=== PATIENT | female | born 1985 | race Caucasian/White ===

== ENCOUNTER 2016-04-29 16:35 | Emergency (ER) | payer OTHER ==
[2016-04-29] MEDS ORDERED: diphenhydrAMINE 50 MG/ML 1 ML VIAL IVP STA (17:07)
[2016-04-29] MEDS ORDERED: SODIUM CHLORIDE 0.9% 1,000 ML IV STA (17:07)
[2016-04-29] MEDS ORDERED: DEXAMETHASONE SOD PHOSPHATE 4 MG/ML 1 ML VIAL IV STA (17:07)
[2016-04-29] MEDS ORDERED: METOCLOPRAMIDE 5 MG/ML 2 ML VIAL IVP STA (17:07)
[2016-04-29] MEDS ORDERED: ACETAMINOPHEN TAB 325 MG TAB PO STA (17:08)
[2016-04-29 17:46] LABS: CH 29.6; CHCM 35.3; HCT 36.8 % (34.0-46.0); HDW 3.07; HGB 12.8 gm/dL (11.4-16.0); MCH 29.2 pg (25.0-35.0); MCHC 34.7 g/dL (31.0-37.0); MCV 84.4 fL (80.0-100.0); Mean Platelet Volume 7.2; RBC 4.37 m/uL (3.80-5.40); RDW 13.1 % (11.5-15.5); WBC 11.5 k/uL (3.8-10.6)
--- NOTE | 2016-04-29 17:57 | ED ---
General Adult HPI - General Chief complaint: Headache Stated complaint: Headache Time Seen by Provider: 04/29/16 16:50 Source: patient Mode of arrival: ambulatory Limitations: no limitations - History of Present Illness Initial comments: The patient is a 30-year-old female who presents to the ED with a chief complaint of headache. The patient states that the pain is located predominantly on the left side of her head. The patient states that it is an achy pain. She states that it feels like a large amount of pressure within her head. She states that the pressure starts behind her left eye and courses to the left occipital region. The patient denies any visual changes. She states that she has photophobia of the left eye only. Patient denies any nausea but states she had had a decreased appetite overall. Patient states that she has never had a headache like this in the past. The only thing that she can think of is when she had a spinal headache following an epidural. Patient denies that she gets regular migraine headaches. Patient denies any fevers or chills. She denies any recent head trauma. Patient states that she took Sudafed at home without any relief of symptoms. Patient denies any congestion. Denies any sore throat. Denies antibiotics. - Related Data Home Medications Medication Instructions Recorded Confirmed Bc Pain Reliever 1 tab PO DAILY PRN 04/29/16 04/29/16 Previous Rx's Medication Instructions Recorded Butalb/Acetaminophen/Caffeine 1 - 2 each PO Q4H PRN #18 tab 04/29/16 [Fioricet 50-325-40] Allergies Allergy/AdvReac Type Severity Reaction Status Date / Time No Known Allergies Allergy Verified 04/29/16 17:05 Review of Systems ROS Statement: Those systems with pertinent positive or pertinent negative responses have been documented in the HPI. ROS Other: All systems not noted in ROS Statement are negative. Constitutional: Denies: fever, chills, weakness Eyes: Reports: other (photophobia of left eye). Denies: eye pain, eye discharge , vision change ENT: Denies: ear pain, throat pain, dental pain, hearing loss Respiratory: Denies: cough, dyspnea, wheezes, hemoptysis Cardiovascular: Denies: chest pain Endocrine: Denies: fatigue Gastrointestinal: Denies: abdominal pain, nausea, vomiting, diarrhea, constipation Genitourinary: Denies: urgency, dysuria, frequency, hematuria Musculoskeletal: Denies: back pain Skin: Denies: rash, lesions, change in color Neurological: Reports: headache. Denies: weakness, numbness, paresthesias, confusion Psychiatric: Denies: anxiety, depression Past Medical History Past Medical History: No Reported History History of Any Multi-Drug Resistant Organisms: None Reported Additional Past Surgical History / Comment(s): COLONOSCOPY Past Anesthesia/Blood Transfusion Reactions: No Reported Reaction Past Psychological History: No Psychological Hx Reported Smoking Status: Former smoker Past Alcohol Use History: None Reported Past Drug Use History: None Reported General Exam Limitations: no limitations General appearance: alert, in no apparent distress Head exam: Present: atraumatic, normocephalic Eye exam: Present: normal appearance, PERRL, EOMI. Absent: scleral icterus, conjunctival injection Pupils: Present: normal accommodation, other (pupils are 4mm, equal and reactive bilaterally) ENT exam: Present: normal exam, normal oropharynx Neck exam: Present: normal inspection Respiratory exam: Present: normal lung sounds bilaterally. Absent: respiratory distress, wheezes, rales, rhonchi, stridor, chest wall tenderness Cardiovascular Exam: Present: regular rate, normal rhythm GI/Abdominal exam: Present: soft. Absent: distended, tenderness, guarding, rebound Extremities exam: Present: normal inspection, full ROM. Absent: tenderness, normal capillary refill Back exam: Present: normal inspection, full ROM Neurological exam: Present: alert, oriented X3, CN II-XII intact Psychiatric exam: Present: normal affect Skin exam: Present: warm, dry, intact Course Vital Signs 04/29/16 16:36 Temperature 97.6 F Pulse Rate 98 Respiratory 18 Rate Blood Pressure 160/101 O2 Sat by Pulse 97 Oximetry Medical Decision Making - Medical Decision Making Patient is a 30-year-old female who presents to the ED with a chief complaint of headache. Headache is located in the left side of the head. Patient rates it as a 6 out of 10 in severity. Patient states that she's never had a headache like this in the past. She describes it as an achy pressure. Patient denies any fevers or chills. Denies any nausea or vomiting. Denies any visual changes. No neurologic deficits on examination. Provide patient with Decadron , Reglan, Benadryl, IV fluids. Provide patient with Tylenol as well. Check CT head given that this is a new headache the patient has never experienced in the past. Check urine as well. 7:17 PM The patient states that her headache has resolved with the medication provided to her today. She states that she is feeling wonderful. Counseled patient that she is likely suffering from a cluster headache. Counseled her to rest while at home. Will discharge home with prescription for Fioricet to use PRN. I have counseled the patient on how to take this medication appropriately. I have encouraged the patient to return to the ED should her symptoms return or worsen. I have answered all of her questions to her satisfaction. Counseled the patient to follow up with her PCP for further management of her headaches. - Lab Data Result diagrams: 04/29/16 17:35 04/29/16 17:35 Lab Results 04/29/16 04/29/16 04/29/16 Range/Units 17:35 17:35 17:35 WBC 11.5 H (3.8-10.6) k/uL RBC 4.37 (3.80-5.40) m/uL Hgb 12.8 (11.4-16.0) gm/dL Hct 36.8 (34.0-46.0) % MCV 84.4 (80.0-100.0) fL MCH 29.2 (25.0-35.0) pg MCHC 34.7 (31.0-37.0) g/dL RDW 13.1 (11.5-15.5) % Plt Count 300 (150-450) k/uL Sodium 142 (137-145) mmol/L Potassium 3.7 (3.5-5.1) mmol/L Chloride 103 (98-107) mmol/L Carbon Dioxide 28 (22-30) mmol/L Anion Gap 11 mmol/L BUN 9 (7-17) mg/dL Creatinine 0.73 (0.52-1.04) mg/dL Est GFR (MDRD) Af Amer >60 (>60 ml/min/1.73 sqM) Est GFR (MDRD) Non-Af >60 (>60 ml/min/1.73 sqM) Glucose 115 H (74-99) mg/dL Calcium 9.2 (8.4-10.2) mg/dL Magnesium 2.0 (1.6-2.3) mg/dL Urine Color Yellow Urine Appearance Clear (Clear) Urine pH 7.0 (5.0-8.0) Ur Specific [place] 1.020 (1.001-1.035) Urine Protein Negative (Negative) Urine Glucose (UA) Negative (Negative) Urine Ketones Negative (Negative) Urine Blood Moderate H (Negative) Urine Nitrate Negative (Negative) Urine Bilirubin Negative (Negative) Urine Urobilinogen <2.0 (<2.0) mg/dL Ur Leukocyte Esterase Trace H (Negative) Urine RBC 2 (0-5) /hpf Urine WBC 2 (0-5) /hpf Ur Squamous Epith Cells <1 (0-4) /hpf Urine Bacteria Rare H (None) /hpf Urine HCG, Qual (Not Detectd) 04/29/16 Range/Units 17:35 WBC (3.8-10.6) k/uL RBC (3.80-5.40) m/uL Hgb (11.4-16.0) gm/dL Hct (34.0-46.0) % MCV (80.0-100.0) fL MCH (25.0-35.0) pg MCHC (31.0-37.0) g/dL RDW (11.5-15.5) % Plt Count (150-450) k/uL Sodium (137-145) mmol/L Potassium (3.5-5.1) mmol/L Chloride (98-107) mmol/L Carbon Dioxide (22-30) mmol/L Anion Gap mmol/L BUN (7-17) mg/dL Creatinine (0.52-1.04) mg/dL Est GFR (MDRD) Af Amer (>60 ml/min/1.73 sqM) Est GFR (MDRD) Non-Af (>60 ml/min/1.73 sqM) Glucose (74-99) mg/dL Calcium (8.4-10.2) mg/dL Magnesium (1.6-2.3) mg/dL Urine Color Urine Appearance (Clear) Urine pH (5.0-8.0) Ur Specific [place] (1.001-1.035) Urine Protein (Negative) Urine Glucose (UA) (Negative) Urine Ketones (Negative) Urine Blood (Negative) Urine Nitrate (Negative) Urine Bilirubin (Negative) Urine Urobilinogen (<2.0) mg/dL Ur Leukocyte Esterase (Negative) Urine RBC (0-5) /hpf Urine WBC (0-5) /hpf Ur Squamous Epith Cells (0-4) /hpf Urine Bacteria (None) /hpf Urine HCG, Qual Not Detected (Not Detectd) Disposition Clinical Impression: Headache Disposition: HOME SELF-CARE Condition: Good Instructions: Acute Headache (ED) Additional Instructions: Please return to the ED should you have a worsening headache at home, particularly if associated with changes in your vision Prescriptions: Butalb/Acetaminophen/Caffeine [Fioricet 50-325-40] 1 - 2 each PO Q4H PRN #18 tab PRN Reason: Headache Referrals: Rony Lyons MD [Primary Care Provider] - 1-2 days Time of Disposition: 19:14
[2016-04-29 18:01] LABS: Appearance,Urine Clear (Clear); Bacteria,Urine Rare /hpf; Bilirubin,Urine Negative (Negative); Glucose,Urine (UA) Negative (Negative); Ketones,Urine Negative (Negative); Leukocyte Esterase,Urine Trace (Negative); Nitrite,Urine Negative (Negative); Particle Count 3733; Protein,Urine Negative (Negative); RBC,Urine 2 /hpf (0-5); Squamous Epithelial Cell,Urine <1 /hpf (0-4); UA Billing (MACRO vs. MICRO) MICRO; Urobilinogen,Urine <2.0 mg/dL (<2.0); WBC,Urine 2 /hpf (0-5)
[2016-04-29 18:05] LABS: Anion Gap 11 mmol/L; Blood Urea Nitrogen 9 mg/dL (7-17); Calcium 9.2 mg/dL (8.4-10.2); Carbon Dioxide 28 mmol/L (22-30); Chloride 103 mmol/L (98-107); Glucose 115 mg/dL (74-99); Non-African American GFR(MDRD) >60 (>60 ml/min/1.73 sqM); Potassium 3.7 mmol/L (3.5-5.1); Sodium 142 mmol/L (137-145)
--- NOTE | 2016-04-29 18:39 | CT ---
EXAMINATION TYPE: CT brain wo con DATE OF EXAM: 04/29/2016 6:33 PM COMPARISON: 12/31/2007 HISTORY: PT STATES OF MELENDEZ X4 DAYS. CT DLP: 946.7 mGycm Automated exposure control for dose reduction was used. FINDINGS: Ventricles and sulci appear normal. There is no mass effect nor midline shift. There is no sign of in tracranial hemorrhage. Calvarium is intact. IMPRESSION: Negative unenhanced head CT scan. No change.
[2016-04-29 19:35] VITALS: BP 141/77; PULSE 89; RESP 22; TEMP 99
== END 2016-04-29 19:36 | disposition home or self-care (01) ==
LOC: EC 16:35
DX: R51 Headache (principal); Z87.891 Personal history of nicotine dependence
CPT/HCPCS: 36415; 80048; 83735; 85027; 81001; 81025; 70450; 99284; 96374; 96375 ×2; 96361; J1200; J1100; J2765

== ENCOUNTER 2016-12-09 17:38 | Emergency (ER) | payer OTHER ==
[2016-12-09] MEDS ORDERED: KETOROLAC 30 MG/ML 1 ML VIAL IVP STA (18:15)
--- NOTE | 2016-12-09 18:17 | ED ---
Chest Pain HPI - General Chief Complaint: Chest Pain Stated Complaint: Chest pain Time Seen by Provider: 12/09/16 17:50 Source: patient, RN notes reviewed Mode of arrival: ambulatory Limitations: no limitations - History of Present Illness Initial Comments: This is a 31-year-old female with a benign physical history who states that she woke up from 5:30 this morning with some burning in her left forearm and hand that felt like pinpricks like her hand went to sleep. This did resolve with she also had chest pain it was midsternal cc was very severe when she first got up is better now currently is about 7/10. Pain is worse with movements and deep breathing. She's had no cough fevers chills nausea vomiting sweats she is a nonsmoker no recent history of a long trips. No family history of any heart or lung disease at early age. She is not recall any strenuous activity or recent heavy lifting no falls. MD Complaint: chest pain, other - Related Data Previous Rx's Medication Instructions Recorded Ibuprofen 800 mg PO Q6HR PRN #20 tablet 12/09/16 Allergies Allergy/AdvReac Type Severity Reaction Status Date / Time citalopram [From Celexa] AdvReac JOINT PAIN Verified 12/09/16 18:02 sertraline [From Zoloft] AdvReac Abdominal Verified 12/09/16 18:02 Pain Review of Systems ROS Statement: Those systems with pertinent positive or pertinent negative responses have been documented in the HPI. ROS Other: All systems not noted in ROS Statement are negative. EKG Findings - EKG Results: EKG: interpreted by RAFFY, sinus rhythm (Sinus rhythm rate of 88 MO interval 154 QRS 88 QT since QTC of 372/450 rightward axis no acute ST-T wave changes.) Past Medical History Past Medical History: No Reported History History of Any Multi-Drug Resistant Organisms: None Reported Additional Past Surgical History / Comment(s): COLONOSCOPY Past Anesthesia/Blood Transfusion Reactions: No Reported Reaction Past Psychological History: No Psychological Hx Reported Smoking Status: Never smoker Past Alcohol Use History: None Reported Past Drug Use History: None Reported General Exam - General Exam Comments Initial Comments: This is a well-developed well-nourished awake alert oriented 3 female Limitations: no limitations General appearance: alert, anxious Head exam: Present: atraumatic, normocephalic, normal inspection Eye exam: Present: normal appearance, PERRL, EOMI. Absent: scleral icterus, conjunctival injection, periorbital swelling ENT exam: Present: normal exam, mucous membranes moist Neck exam: Present: normal inspection. Absent: tenderness, meningismus, lymphadenopathy Respiratory exam: Present: normal lung sounds bilaterally, chest wall tenderness (Reproducible tenderness palpation along the left costochondral and costosternal angle.). Absent: respiratory distress, wheezes, rales, rhonchi, stridor Cardiovascular Exam: Present: regular rate, normal rhythm, normal heart sounds. Absent: systolic murmur, diastolic murmur, rubs, gallop, clicks GI/Abdominal exam: Present: soft, normal bowel sounds. Absent: distended, tenderness, guarding, rebound, rigid Extremities exam: Present: normal inspection, full ROM, normal capillary refill. Absent: tenderness, pedal edema, joint swelling, calf tenderness Back exam: Present: normal inspection Neurological exam: Present: alert, oriented X3, CN II-XII intact Psychiatric exam: Present: normal affect, normal mood Skin exam: Present: warm, dry, intact, normal color. Absent: rash Course Vital Signs 12/09/16 17:42 Temperature 97.1 F L Pulse Rate 104 H Respiratory 20 Rate Blood Pressure 179/91 O2 Sat by Pulse 99 Oximetry Chest Pain MDM - MDM The patient is feeling improved I did discuss the findings with her. X-ray was negative for acute findings the presentation is consistent with costochondritis I did discuss the findings with her and the lab results as well as x-ray results patient will be discharged on anti-inflammatories. Disposition Clinical Impression: Costalchondritis, Chest wall syndrome Disposition: HOME SELF-CARE Condition: Good Instructions: Costochondritis (ED) Prescriptions: Ibuprofen 800 mg PO Q6HR PRN #20 tablet PRN Reason: Pain Referrals: Rony Lyons MD [Primary Care Provider] - 1-2 days
[2016-12-09 18:48] LABS: Basophils % (A) 0 %; CH 29.4; CHCM 33.8; Eosinophils # (A) 0.2 k/uL (0-0.7); Eosinophils % (A) 2 %; HCT 37.9 % (34.0-46.0); HDW 2.99; HGB 12.7 gm/dL (11.4-16.0); Luc # (Auto) 0.12; Luc % (Auto) 2; Lymphocytes # (A) 1.9 k/uL (1.0-4.8); Lymphocytes % (A) 23 %; MCH 29.2 pg (25.0-35.0); MCHC 33.5 g/dL (31.0-37.0); MCV 87.1 fL (80.0-100.0); Mean Platelet Volume 6.6; Monocytes # (A) 0.4 k/uL (0-1.0); Monocytes % (A) 5 %; Neutrophils # (A) 5.6 k/uL (1.3-7.7); Neutrophils % (A) 69 %; RBC 4.34 m/uL (3.80-5.40); WBC 8.1 k/uL (3.8-10.6); WBC (Perox) 8.41
--- NOTE | 2016-12-09 19:04 | XR ---
EXAMINATION TYPE: XR chest 2V DATE OF EXAM: 12/09/2016 COMPARISON: NONE HISTORY: Chest pain TECHNIQUE: Frontal and lateral views of the chest are obtained. FINDINGS: Heart and mediastinum are normal. Lungs are clear. Diaphragm is normal. Bony thorax is int act. IMPRESSION: Normal chest
[2016-12-09 19:08] LABS: ALT 25 U/L (9-52); AST 22 U/L (14-36); Alkaline Phosphatase 73 U/L (38-126); Anion Gap 10 mmol/L; Blood Urea Nitrogen 6 mg/dL (7-17); Calcium 9.1 mg/dL (8.4-10.2); Carbon Dioxide 22 mmol/L (22-30); Chloride 108 mmol/L (98-107); Glucose 96 mg/dL (74-99); Non-African American GFR(MDRD) >60 (>60 ml/min/1.73 sqM); Potassium 3.8 mmol/L (3.5-5.1); Sodium 140 mmol/L (137-145); Total Bilirubin 0.2 mg/dL (0.2-1.3); Total Protein 6.6 g/dL (6.3-8.2)
[2016-12-09 19:15] LABS: Creatine Kinase 70 U/L (30-135)
[2016-12-09 19:25] LABS: INR 0.9 (<1.2); Partial Thromboplastin Time 22.7 sec (22.0-30.0); Prothrombin Time 9.5 sec (9.0-12.0)
[2016-12-09 19:27] LABS: Creatine Kinase MB 0.3 ng/mL (0.0-2.4); Troponin I <0.012 ng/mL (0.000-0.034)
[2016-12-09 19:58] VITALS: BP 129/67; PULSE 90; RESP 16; TEMP 97.6
== END 2016-12-09 19:57 | disposition home or self-care (01) ==
LOC: EC 17:38
DX: M94.0 Chondrocostal junction syndrome [Tietze] (principal); R07.1 Chest pain on breathing; Z88.8 Allergy status to other drugs, medicaments and biological substances
CPT/HCPCS: 99285 ×2; 96374 ×2; 36415; 93005; 85379; 83880; 80053; 84443; 82550; 82553; 83735; 84484; 85025; 85610; 85730; 71020; J1885

== ENCOUNTER 2017-07-29 16:16 | Emergency (ER) | payer OTHER ==
--- NOTE | 2017-07-29 16:43 | ED ---
General Adult HPI - General Chief complaint: Extremity Problem,Nontraumatic Stated complaint: Leg pain Time Seen by Provider: 07/29/17 16:33 Source: patient, RN notes reviewed Mode of arrival: ambulatory Limitations: no limitations - History of Present Illness Initial comments: Patient 31-year-old female presenting to the emergency room today with chief complaint of left calf pain. She doesn't that she's had some mild pain on the right calf as well. She states symptoms started approximately a week ago. Denies any specific injury or trauma. Does admit that she did go to urgent care who advised to come here to the emergency room for further evaluation. Patient states never had similar symptoms the past. States appetite has been well. States he drinking appropriately. Patient denies any other associated symptoms or complaints. Patient denies any recent fever, chills, shortness of breath, chest pain, back pain, abdominal pain, nausea or vomiting, numbness or tingling, dysuria or hematuria, constipation or diarrhea, headaches or visual changes, or any other complaints. - Related Data Previous Rx's Medication Instructions Recorded Ibuprofen 800 mg PO Q6HR PRN #20 tablet 12/09/16 Cyclobenzaprine [Flexeril] 10 mg PO TID #15 tab 07/29/17 Ibuprofen [Motrin] 600 mg PO Q6HR PRN #40 day 07/29/17 Allergies Allergy/AdvReac Type Severity Reaction Status Date / Time citalopram [From Celexa] AdvReac JOINT PAIN Verified 07/29/17 16:28 sertraline [From Zoloft] AdvReac Abdominal Verified 07/29/17 16:28 Pain Review of Systems ROS Statement: Those systems with pertinent positive or pertinent negative responses have been documented in the HPI. ROS Other: All systems not noted in ROS Statement are negative. Past Medical History Past Medical History: GERD/Reflux History of Any Multi-Drug Resistant Organisms: None Reported Additional Past Surgical History / Comment(s): COLONOSCOPY Past Anesthesia/Blood Transfusion Reactions: No Reported Reaction Past Psychological History: No Psychological Hx Reported Smoking Status: Never smoker Past Alcohol Use History: None Reported Past Drug Use History: None Reported General Exam - General Exam Comments Initial Comments: General: The patient is awake and alert, in no distress, and does not appear acutely ill. Eye: Pupils are equal, round and reactive to light, extra-ocular movements are intact. No nystagmus. There is normal conjunctiva bilaterally. No signs of icterus. Ears, nose, mouth and throat: There are moist mucous membranes and no oral lesions. Neck: The neck is supple, there is no tenderness or JVD. Cardiovascular: There is a regular rate and rhythm. No murmur, rub or gallop is appreciated. Respiratory: Lungs are clear to auscultation, respirations are non-labored, breath sounds are equal. No wheezes, stridor, rales, or rhonchi. Musculoskeletal: Full range of motion. Patient does have tenderness in the left posterior calf. There is increased swelling of the right calf compared to the left. No specific tenderness to the right calf. Strength 5/5. Sensation intact. Pulses equal bilaterally 2+. Neurological: A&O x 3. CN II-XII intact, There are no obvious motor or sensory deficits. Coordination appears grossly intact. Speech is normal. Skin: Skin is warm and dry and no rashes or lesions are noted. Psychiatric: Cooperative, appropriate mood & affect, normal judgment. Limitations: no limitations Course Vital Signs 07/29/17 07/29/17 16:24 17:37 Temperature 98.5 F Pulse Rate 97 91 Respiratory 18 19 Rate Blood Pressure 174/98 151/80 O2 Sat by Pulse 96 98 Oximetry Medical Decision Making - Medical Decision Making Patient reexamined at this time shows no signs of distress. Ultrasound is negative for any evidence of DVT. Results were discussed with patient. Patient 's blood sugar mildly elevated advised faulted family doctor. Blood pressure mildly elevated here in the emergency room is overall. Patient is advised close follow-up. Advised to use anti-inflammatories for pain. She does admit that she's had spasms in the leg patient will be given a muscle relaxer advised that it may make her drowsy. Advised return for any other concerns. - Lab Data Result diagrams: 07/29/17 16:35 07/29/17 16:35 Lab Results 07/29/17 07/29/17 07/29/17 Range/Units 16:35 16:35 16:35 WBC 10.1 (3.8-10.6) k/uL RBC 4.72 (3.80-5.40) m/uL Hgb 13.4 (11.4-16.0) gm/dL Hct 39.1 (34.0-46.0) % MCV 82.9 (80.0-100.0) fL MCH 28.5 (25.0-35.0) pg MCHC 34.4 (31.0-37.0) g/dL RDW 14.1 (11.5-15.5) % Plt Count 298 (150-450) k/uL Neutrophils % 72 % Lymphocytes % 23 % Monocytes % 4 % Eosinophils % 1 % Basophils % 0 % Neutrophils # 7.3 (1.3-7.7) k/uL Lymphocytes # 2.3 (1.0-4.8) k/uL Monocytes # 0.4 (0-1.0) k/uL Eosinophils # 0.1 (0-0.7) k/uL Basophils # 0.0 (0-0.2) k/uL Sodium 143 (137-145) mmol/L Potassium 3.9 (3.5-5.1) mmol/L Chloride 106 (98-107) mmol/L Carbon Dioxide 21 L (22-30) mmol/L Anion Gap 16 mmol/L BUN 12 (7-17) mg/dL Creatinine 0.55 (0.52-1.04) mg/dL Est GFR (CKD-EPI)AfAm >90 (>60 ml/min/1.73 sqM) Est GFR (CKD-EPI)NonAf >90 (>60 ml/min/1.73 sqM) Glucose 131 H (74-99) mg/dL Calcium 9.6 (8.4-10.2) mg/dL Total Bilirubin 0.5 (0.2-1.3) mg/dL AST 51 H (14-36) U/L ALT 52 (9-52) U/L Alkaline Phosphatase 88 (38-126) U/L Total Protein 7.4 (6.3-8.2) g/dL Albumin 4.3 (3.5-5.0) g/dL Urine Color Urine Appearance (Clear) Urine pH (5.0-8.0) Ur Specific [place] (1.001-1.035) Urine Protein (Negative) Urine Glucose (UA) (Negative) Urine Ketones (Negative) Urine Blood (Negative) Urine Nitrite (Negative) Urine Bilirubin (Negative) Urine Urobilinogen (<2.0) mg/dL Ur Leukocyte Esterase (Negative) Urine RBC (0-5) /hpf Urine WBC (0-5) /hpf Ur Squamous Epith Cells (0-4) /hpf Amorphous Sediment (None) /hpf Urine Bacteria (None) /hpf Urine Mucus (None) /hpf Urine HCG, Qual Not Detected (Not Detectd) 07/29/17 Range/Units 16:35 WBC (3.8-10.6) k/uL RBC (3.80-5.40) m/uL Hgb (11.4-16.0) gm/dL Hct (34.0-46.0) % MCV (80.0-100.0) fL MCH (25.0-35.0) pg MCHC (31.0-37.0) g/dL RDW (11.5-15.5) % Plt Count (150-450) k/uL Neutrophils % % Lymphocytes % % Monocytes % % Eosinophils % % Basophils % % Neutrophils # (1.3-7.7) k/uL Lymphocytes # (1.0-4.8) k/uL Monocytes # (0-1.0) k/uL Eosinophils # (0-0.7) k/uL Basophils # (0-0.2) k/uL Sodium (137-145) mmol/L Potassium (3.5-5.1) mmol/L Chloride (98-107) mmol/L Carbon Dioxide (22-30) mmol/L Anion Gap mmol/L BUN (7-17) mg/dL Creatinine (0.52-1.04) mg/dL Est GFR (CKD-EPI)AfAm (>60 ml/min/1.73 sqM) Est GFR (CKD-EPI)NonAf (>60 ml/min/1.73 sqM) Glucose (74-99) mg/dL Calcium (8.4-10.2) mg/dL Total Bilirubin (0.2-1.3) mg/dL AST (14-36) U/L ALT (9-52) U/L Alkaline Phosphatase (38-126) U/L Total Protein (6.3-8.2) g/dL Albumin (3.5-5.0) g/dL Urine Color Yellow Urine Appearance Cloudy H (Clear) Urine pH 6.0 (5.0-8.0) Ur Specific [place] 1.028 (1.001-1.035) Urine Protein 1+ H (Negative) Urine Glucose (UA) 1+ H (Negative) Urine Ketones 1+ H (Negative) Urine Blood Large H (Negative) Urine Nitrite Negative (Negative) Urine Bilirubin Negative (Negative) Urine Urobilinogen 2.0 (<2.0) mg/dL Ur Leukocyte Esterase Small H (Negative) Urine RBC 5 (0-5) /hpf Urine WBC 7 H (0-5) /hpf Ur Squamous Epith Cells 5 H (0-4) /hpf Amorphous Sediment Rare H (None) /hpf Urine Bacteria Rare H (None) /hpf Urine Mucus Moderate H (None) /hpf Urine HCG, Qual (Not Detectd) Disposition Clinical Impression: Leg cramp Disposition: HOME SELF-CARE Condition: Good Instructions: Leg Cramps (ED) Additional Instructions: Please use medication as discussed. Please follow-up with family doctor in the next 2 days. Please return to emergency room if the symptoms increase or worsen or for any other concerns. Prescriptions: Cyclobenzaprine [Flexeril] 10 mg PO TID #15 tab Ibuprofen [Motrin] 600 mg PO Q6HR PRN #40 day PRN Reason: Pain Is patient prescribed a controlled substance at d/c from ED?: No Referrals: Rony Lyons MD [Primary Care Provider] - 1-2 days Time of Disposition: 18:58
[2017-07-29 16:56] LABS: Basophils % (A) 0 %; Eosinophils # (A) 0.1 k/uL (0-0.7); Eosinophils % (A) 1 %; HCT 39.1 % (34.0-46.0); HGB 13.4 gm/dL (11.4-16.0); Lymphocytes # (A) 2.3 k/uL (1.0-4.8); Lymphocytes % (A) 23 %; MCH 28.5 pg (25.0-35.0); MCHC 34.4 g/dL (31.0-37.0); MCV 82.9 fL (80.0-100.0); Mean Platelet Volume 6.2; Monocytes # (A) 0.4 k/uL (0-1.0); Monocytes % (A) 4 %; Neutrophils # (A) 7.3 k/uL (1.3-7.7); Neutrophils % (A) 72 %; Platelet Count 298 k/uL (150-450); RBC 4.72 m/uL (3.80-5.40); RDW 14.1 % (11.5-15.5); WBC 10.1 k/uL (3.8-10.6)
[2017-07-29 17:01] LABS: Amorphous Sediment,Urine Rare /hpf; Appearance,Urine Cloudy (Clear); Bacteria,Urine Rare /hpf; Bilirubin,Urine Negative (Negative); Blood,Urine Large (Negative); Color,Urine Yellow; Glucose,Urine (UA) 1+ (Negative); Ketones,Urine 1+ (Negative); Leukocyte Esterase,Urine Small (Negative); Mucus,Urine Moderate /hpf; Nitrite,Urine Negative (Negative); Protein,Urine 1+ (Negative); RBC,Urine 5 /hpf (0-5); Specific Gravity,Urine 1.028 (1.001-1.035); Squamous Epithelial Cell,Urine 5 /hpf (0-4); WBC,Urine 7 /hpf (0-5)
[2017-07-29 17:06] LABS: ALT 52 U/L (9-52); AST 51 U/L (14-36); Albumin 4.3 g/dL (3.5-5.0); Alkaline Phosphatase 88 U/L (38-126); Anion Gap 16 mmol/L; Blood Urea Nitrogen 12 mg/dL (7-17); Calcium 9.6 mg/dL (8.4-10.2); Carbon Dioxide 21 mmol/L (22-30); Chloride 106 mmol/L (98-107); Glucose 131 mg/dL (74-99); Potassium 3.9 mmol/L (3.5-5.1); Sodium 143 mmol/L (137-145); Total Bilirubin 0.5 mg/dL (0.2-1.3); Total Protein 7.4 g/dL (6.3-8.2)
[2017-07-29 17:38] VITALS: RESP 19
--- NOTE | 2017-07-29 18:44 | US ---
EXAMINATION TYPE: US venous doppler duplex LE DATE OF EXAM: 07/29/2017 5:09 PM COMPARISON: NONE CLINICAL HISTORY: Pain. Pt states leg pain, more on left SIDE PERFORMED: Bilateral TECHNIQUE: The lower extremity deep venous system is examined utilizing real time linear array sonog terry with graded compression, doppler sonography and color-flow sonography. VESSELS IMAGED: External Iliac Vein (EIV) Common Femoral Vein Deep Femoral Vein Greater Saphenous Vein * Femoral Vein Popliteal Vein Small Saphenous Vein * Proximal Calf Veins (* superficial vessels) Pt very tense during exam Right Leg: Negative for DVT Left Leg: Negative for DVT Grayscale, color doppler, spectral doppler imaging performed of the deep veins of the lower extremiti es. There is normal flow, compressibility, vascular waveforms. IMPRESSION: No sonographic evidence of deep venous thrombosis within the bilateral lower extremities .
[2017-07-29 19:01] VITALS: BP 183/101; PULSE 89; TEMP 98.1
[2017-07-29] MEDS ORDERED: CYCLOBENZAPRINE 10 MG TAB PO STA (19:06)
== END 2017-07-29 19:15 | disposition home or self-care (01) ==
LOC: EC 16:16
DX: R25.2 Cramp and spasm (principal); Z88.8 Allergy status to other drugs, medicaments and biological substances
CPT/HCPCS: 36415; 80053; 81001; 81025; 85025; 93970; 99284

== ENCOUNTER → 2017-08-14 | Outpatient (CLI) | payer OTHER ==
--- NOTE | 2017-08-14 08:40 | US ---
EXAMINATION TYPE: US liver DATE OF EXAM: 08/14/2017 COMPARISON: NONE CLINICAL HISTORY: R94.5 Abnormal results of liver function studies. EXAM MEASUREMENTS: Liver Length: 17.7 cm Gallbladder Wall: 0.1 cm CBD: 0.3 cm Right Kidney: 12.2 x 3.9 x 4.2 cm Patient of large body habitus. Pancreas: wnl Liver: unable to penetrate, limited visualization due to severe attenuation, enlarged in size. No di screte masses are evident. Gallbladder: limited visualization due to overlying bowel, severe attenuation of liver Evidence for sonographic Acuña's sign: no CBD: wnl Right Kidney: No hydronephrosis or masses seen IMPRESSION: 1. Moderate fatty infiltration liver. Hepatomegaly is present.
== END ==
LOC: RADUSWWP 06:50
PROVIDERS: ATTEND Internal Medicine
DX: K76.0 Fatty (change of) liver, not elsewhere classified (principal); Z88.8 Allergy status to other drugs, medicaments and biological substances
CPT/HCPCS: 76705

== ENCOUNTER → 2018-10-13 | Outpatient (CLI) | payer OTHER ==
[2018-10-13 11:41] LABS: HCT 39.6 % (34.0-46.0); HGB 13.3 gm/dL (11.4-16.0); MCH 28.7 pg (25.0-35.0); MCHC 33.6 g/dL (31.0-37.0); MCV 85.6 fL (80.0-100.0); Mean Platelet Volume 7.3; Platelet Count 325 k/uL (150-450); RBC 4.62 m/uL (3.80-5.40); RDW 13.7 % (11.5-15.5); WBC 8.4 k/uL (3.8-10.6)
[2018-10-13 16:38] LABS: T3, Uptake 25 % (23-37)
[2018-10-13 16:42] LABS: Progesterone <0.2 ng/mL
[2018-10-13 16:47] LABS: T4, Free (Free Thyroxine) 0.9 ng/dL (0.80-1.80)
== END | disposition home or self-care (01) ==
LOC: LABWHC1 11:27
PROVIDERS: ATTEND Obstetrics & Gynecology
DX: Z13.1 Encounter for screening for diabetes mellitus (principal); N93.8 Other specified abnormal uterine and vaginal bleeding
CPT/HCPCS: 36415; 82670; 82947; 83001; 83002; 83036; 84144; 84146; 84439; 84443; 84479; 85027

== ENCOUNTER → 2018-10-24 | Outpatient (CLI) | payer OTHER ==
--- NOTE | 2018-10-25 09:25 | US ---
EXAMINATION TYPE: US pelvic complete DATE OF EXAM: 10/24/2018 COMPARISON: NONE CLINICAL HISTORY: N93.8 Dysfunctional uterine bleeding. Bleeding x1 month TECHNIQUE: . Transabdominal sonographic images of the pelvis were acquired. Date of LMP: About 1 month ago EXAM MEASUREMENTS: Uterus: 8.2 x 4.3 x 6.6 cm Endometrial Stripe: 0.5 cm Right Ovary: 3.5 x 2.7 x 2.2 cm Left Ovary: 3.9 x 4.2 x 3.4 cm 1. Uterus: Anteverted Heterogeneous 2. Endometrium: wnl 3. Right Ovary: wnl 4. Left Ovary: Cystic area visualized measuring 2.8 x 2.7 x 2.4 cm 5. Bilateral Adnexa: wnl 6. Posterior cul-de-sac: wnl IMPRESSION: 1. Left ovarian cyst.
== END | disposition home or self-care (01) ==
LOC: RADUSWWP 15:44
PROVIDERS: ATTEND Obstetrics & Gynecology
DX: N83.202 Unspecified ovarian cyst, left side (principal)
CPT/HCPCS: 76856

== ENCOUNTER → 2019-06-19 | Outpatient (CLI) | payer OTHER | END | disposition home or self-care (01) | LOC: LABWHC1 11:26 | PROVIDERS: ATTEND Obstetrics & Gynecology | DX: O20.9 Hemorrhage in early pregnancy, unspecified (principal) | CPT/HCPCS: 36415; 84702; 86850; 86900; 86901 ==

== ENCOUNTER → 2019-06-21 | Outpatient (CLI) | payer OTHER | END | disposition home or self-care (01) | LOC: LABWHC1 08:31 | PROVIDERS: ATTEND Obstetrics & Gynecology | DX: O20.0 Threatened abortion (principal) | CPT/HCPCS: 36415; 84702 ==

== ENCOUNTER → 2019-06-21 | Outpatient (CLI) | payer OTHER ==
--- NOTE | 2019-06-21 14:32 | US ---
EXAMINATION TYPE: Transabdominal DATE OF EXAM: 06/21/2019 11:32 AM COMPARISON: Prior pelvic ultrasound 10/24/2018 CLINICAL HISTORY: O46.91 Bleeding. EXAM PERFORMED: Transabdominal and endovaginal pelvic ultrasound scanning EXAM MEASUREMENTS: GESTATIONAL AGE / DATING Physician Established: Not yet established Dates by LMP: patient has been bleeding for a month Dates by First Scan: No previous this is first scan Dates by Current Scan for: Unable to date by beth herman's study MATERNAL ANATOMY Uterus: 9.4 x 4.4 x 6.1cm Right Ovary: 3.2 x 2.2 x 2.5cm Left Ovary: obscured by bowel gas Post CDS / Adnexa: wnl There is a gestational sac present which is too small for dating, mean sac diameter 7 mm Presence of subchorionic bleed:1.2 x 0.6 x 0.7 GESTATION / SURVEY Yolk Sac (normal less than 6mm): 2mm Date of LMP: Patient has been bleeding for a month Beta HcG (if available): not available, patient states it is increasing IMPRESSION: Exam is limited. Findings may represent an early , follow-up suggested, possible subchorioni c hemorrhage
== END | disposition home or self-care (01) ==
LOC: RADUSWWP 10:35
PROVIDERS: ATTEND Obstetrics & Gynecology
DX: O46.91 Antepartum hemorrhage, unspecified, first trimester (principal); Z3A.00 Weeks of gestation of pregnancy not specified
CPT/HCPCS: 76801; 76817

== ENCOUNTER → 2019-06-24 | Outpatient (CLI) | payer OTHER | END | disposition home or self-care (01) | LOC: LABWHC1 08:36 | PROVIDERS: ATTEND Obstetrics & Gynecology | DX: O20.0 Threatened abortion (principal) | CPT/HCPCS: 36415; 84702 ==

== ENCOUNTER 2019-06-26 09:47 | Emergency (ER) | payer OTHER ==
[2019-06-26 09:54] VITALS: RESP 18
[2019-06-26] MEDS ORDERED: SODIUM CHLORIDE 0.9% 1,000 ML IV ONE (10:05)
[2019-06-26 10:30] LABS: Basophils % (A) 0 %; Eosinophils # (A) 0.1 k/uL (0-0.7); Eosinophils % (A) 1 %; HGB 12.7 gm/dL (11.4-16.0); Lymphocytes # (A) 1.5 k/uL (1.0-4.8); Lymphocytes % (A) 19 %; MCHC 33.4 g/dL (31.0-37.0); MCV 83.8 fL (80.0-100.0); Mean Platelet Volume 7.1; Monocytes # (A) 0.3 k/uL (0-1.0); Monocytes % (A) 3 %; Neutrophils % (A) 76 %; Platelet Count 249 k/uL (150-450); RBC 4.53 m/uL (3.80-5.40); RDW 13.8 % (11.5-15.5); WBC 7.9 k/uL (3.8-10.6)
[2019-06-26 10:38] LABS: African American GFR (CKD) >90 (>60 ml/min/1.73 sqM); Anion Gap 10 mmol/L; Blood Urea Nitrogen 10 mg/dL (7-17); Calcium 9.2 mg/dL (8.4-10.2); Carbon Dioxide 21 mmol/L (22-30); Chloride 106 mmol/L (98-107); Glucose 149 mg/dL (74-99); Non-African American GFR(CKD) >90 (>60 ml/min/1.73 sqM); Sodium 137 mmol/L (137-145)
--- NOTE | 2019-06-26 10:49 | ED ---
Female Urogenital HPI - General Chief complaint: Urogenital Stated complaint: Obgyn sent in Time Seen by Provider: 06/26/19 09:59 Source: patient, RN notes reviewed Mode of arrival: ambulatory Limitations: no limitations - History of Present Illness Initial comments: This is a 33-year-old female presents emergency Department chief complaint of bleeding and . Patient states that she is A0 and believes that she's between 6 and 8 weeks . Patient's INVESTMENT TRADER is Dr. Hernández. She has been doing some outpatient lab testing for her and had an ultrasound and which she was told there was a subchorionic bleed along with early gestational sac. Patient states she's developed some lower abdominal cramping she has been using approximately 2-3 pads daily. Patient states that she's actually had bleeding which has been ongoing since November of last year. She states that she had hormone testing ultrasound which showed nothing significant. Patient did have her nexplanon implant removed last year. Patient states she is concerned that she may be anemic because she's felt dizzy and lightheaded at times. Patient states that she had increased bleeding over the weekend and which she talked her INVESTMENT TRADER today who recommended her to go to the emergency department. - Related Data Home Medications Medication Instructions Recorded Confirmed No Known Home Medications 06/26/19 06/26/19 Allergies Allergy/AdvReac Type Severity Reaction Status Date / Time citalopram [From Celexa] AdvReac JOINT PAIN Verified 06/26/19 11:41 sertraline [From Zoloft] AdvReac Abdominal Verified 06/26/19 11:41 Pain Review of Systems ROS Statement: Those systems with pertinent positive or pertinent negative responses have been documented in the HPI. ROS Other: All systems not noted in ROS Statement are negative. Past Medical History Past Medical History: GERD/Reflux History of Any Multi-Drug Resistant Organisms: None Reported Additional Past Surgical History / Comment(s): COLONOSCOPY Past Anesthesia/Blood Transfusion Reactions: No Reported Reaction Past Psychological History: No Psychological Hx Reported Smoking Status: Never smoker Past Alcohol Use History: None Reported Past Drug Use History: None Reported General Exam Limitations: no limitations General appearance: alert, in no apparent distress Head exam: Present: atraumatic, normocephalic, normal inspection Eye exam: Present: normal appearance, PERRL, EOMI. Absent: scleral icterus, conjunctival injection, periorbital swelling Neck exam: Present: normal inspection, full ROM. Absent: tenderness, meningismus, lymphadenopathy Respiratory exam: Present: normal lung sounds bilaterally. Absent: respiratory distress, wheezes, rales, rhonchi, stridor Cardiovascular Exam: Present: regular rate, normal rhythm, normal heart sounds. Absent: systolic murmur, diastolic murmur, rubs, gallop, clicks GI/Abdominal exam: Present: soft, tenderness (Minimal suprapubic), normal bowel sounds. Absent: distended, guarding, rebound, rigid Back exam: Absent: CVA tenderness (R), CVA tenderness (L) Neurological exam: Present: alert, oriented X3 Skin exam: Present: warm, dry, intact, normal color. Absent: rash Course Vital Signs 06/26/19 09:51 Temperature 98.1 F Pulse Rate 97 Respiratory 18 Rate Blood Pressure 148/93 O2 Sat by Pulse 100 Oximetry Medical Decision Making - Medical Decision Making Ultrasound today shows a gestational sac 6 weeks 1 day with a heart rate of 111 this his development since her last ultrasound. Patient is O+ blood type does not require RhoGAM there is no signs of urinary tract infection. Hemoglobin is stable at 12.7. I did discuss return parameters and concerns. She feels comfortable with discharge and close follow-up. - Lab Data Result diagrams: 06/26/19 10:20 06/26/19 10:20 Lab Results 06/26/19 06/26/19 06/26/19 Range/Units 10:20 10:20 11:00 WBC 7.9 (3.8-10.6) k/uL RBC 4.53 (3.80-5.40) m/uL Hgb 12.7 (11.4-16.0) gm/dL Hct 38.0 (34.0-46.0) % MCV 83.8 (80.0-100.0) fL MCH 28.0 (25.0-35.0) pg MCHC 33.4 (31.0-37.0) g/dL RDW 13.8 (11.5-15.5) % Plt Count 249 (150-450) k/uL Neutrophils % 76 % Lymphocytes % 19 % Monocytes % 3 % Eosinophils % 1 % Basophils % 0 % Neutrophils # 6.0 (1.3-7.7) k/uL Lymphocytes # 1.5 (1.0-4.8) k/uL Monocytes # 0.3 (0-1.0) k/uL Eosinophils # 0.1 (0-0.7) k/uL Basophils # 0.0 (0-0.2) k/uL Sodium 137 (137-145) mmol/L Potassium 4.0 (3.5-5.1) mmol/L Chloride 106 (98-107) mmol/L Carbon Dioxide 21 L (22-30) mmol/L Anion Gap 10 mmol/L BUN 10 (7-17) mg/dL Creatinine 0.59 (0.52-1.04) mg/dL Est GFR (CKD-EPI)AfAm >90 (>60 ml/min/1.73 sqM) Est GFR (CKD-EPI)NonAf >90 (>60 ml/min/1.73 sqM) Glucose 149 H (74-99) mg/dL Calcium 9.2 (8.4-10.2) mg/dL Urine Color Yellow Urine Appearance Clear (Clear) Urine pH 7.0 (5.0-8.0) Ur Specific Joseph 1.008 (1.001-1.035) Urine Protein Trace H (Negative) Urine Glucose (UA) Negative (Negative) Urine Ketones Negative (Negative) Urine Blood Large H (Negative) Urine Nitrite Negative (Negative) Urine Bilirubin Negative (Negative) Urine Urobilinogen <2.0 (<2.0) mg/dL Ur Leukocyte Esterase Moderate H (Negative) Urine RBC 21 H (0-5) /hpf Urine WBC 3 (0-5) /hpf Ur Squamous Epith Cells 6 H (0-4) /hpf Urine Bacteria Rare H (None) /hpf Urine Mucus Rare H (None) /hpf Disposition Clinical Impression: , Subchorionic bleed Disposition: HOME SELF-CARE Condition: Stable Instructions (If sedation given, give patient instructions): Subchorionic Hemorrhage (ED) Additional Instructions: Please return to the Emergency Department if symptoms worsen or any other concerns. Is patient prescribed a controlled substance at d/c from ED?: No Referrals: Rony Lyons MD [Primary Care Provider] - 1-2 days Time of Disposition: 11:59
[2019-06-26 11:25] LABS: Appearance,Urine Clear (Clear); Bacteria,Urine Rare /hpf; Bilirubin,Urine Negative (Negative); Blood,Urine Large (Negative); Color,Urine Yellow; Glucose,Urine (UA) Negative (Negative); Ketones,Urine Negative (Negative); Leukocyte Esterase,Urine Moderate (Negative); Mucus,Urine Rare /hpf; Nitrite,Urine Negative (Negative); Protein,Urine Trace (Negative); RBC,Urine 21 /hpf (0-5); Specific Gravity,Urine 1.008 (1.001-1.035); Squamous Epithelial Cell,Urine 6 /hpf (0-4); Urobilinogen,Urine <2.0 mg/dL (<2.0); WBC,Urine 3 /hpf (0-5)
--- NOTE | 2019-06-26 11:33 | US ---
EXAMINATION TYPE: Transabdominal DATE OF EXAM: 06/26/2019 11:00 AM COMPARISON: 2019 CLINICAL HISTORY: increase bleeding, early . Increase in bleeding and pelvic pain EXAM PERFORMED: Transabdominal (TA) EXAM MEASUREMENTS: GESTATIONAL AGE / DATING Physician Established: Not established yet Dates by LMP: Unknown Dates by First Scan: No pole seen at 1st scan Dates by Current Scan for: (6 weeks/1 days) EDC: 02/18/2020 MATERNAL ANATOMY Uterus: 9.3 x 5.7 x 6.2cm Right Ovary: 3.9 x 1.8 x 2.1cm Left Ovary: 3.7 x 2.4 x 2.4cm Post CDS / Adnexa: wnl Presence of free fluid: no Presence of corpus luteal cyst: left ovary: 2.2 x 1.3 x 2.0cm Presence of subchorionic bleed: 0.8 x 0.9 x 1.4cm GESTATION / SURVEY CRL: 0.4cm (6 weeks/1 days) Yolk Sac (normal less than 6mm): 3.4mm Heart Rate: 111 bpm Rhythm: Normal IUP: Live IUP Date of LMP: Unknown Beta HcG (if available): Not available at time of exam. Live single IUP measuring 6 weeks 1 day with a heart rate of 111bpm and an estimated delivery date of 02/18/2020. IMPRESSION: Single live intrauterine with a sonographic age of 6 weeks and 1 day and heart rate of 111 bpm with an estimated date of delivery of 02/18/2020. There is a subchorionic hemorrhage measuring up to 1.4 cm. Given the obliquity in imaging is difficult to evaluate the percentage of the gestational sac diameter that this subchorionic hemorrhage occupies.
[2019-06-26 12:06] VITALS: BP 138/88; PULSE 82; TEMP 98.3
== END 2019-06-26 12:06 | disposition home or self-care (01) ==
LOC: EC 09:47
DX: O41.8X10 Other specified disorders of amniotic fluid and membranes, first trimester, not applicable or unspecified (principal); Z3A.08 8 weeks gestation of pregnancy; Z88.8 Allergy status to other drugs, medicaments and biological substances
CPT/HCPCS: 36415; 76801; 80048; 81001; 84702; 85025; 96360; 99284

== ENCOUNTER 2019-10-07 04:50 | Outpatient (CLI) | payer OTHER ==
[2019-10-07 05:24] LABS: Glucose,Whole Blood 131 mg/dL (75-99)
[2019-10-07 05:28] LABS: Appearance,Urine Clear (Clear); Bacteria,Urine Rare /hpf; Bilirubin,Urine Negative (Negative); Blood,Urine Trace (Negative); Color,Urine Colorless; Glucose,Urine (UA) Negative (Negative); Ketones,Urine Negative (Negative); Leukocyte Esterase,Urine Small (Negative); Mucus,Urine Rare /hpf; Nitrite,Urine Negative (Negative); PH, Urine 6.5 (5.0-8.0); Protein,Urine Negative (Negative); RBC,Urine 1 /hpf (0-5); Specific Gravity,Urine 1.004 (1.001-1.035); Squamous Epithelial Cell,Urine 1 /hpf (0-4); Urobilinogen,Urine <2.0 mg/dL (<2.0); WBC,Urine 2 /hpf (0-5)
--- NOTE | 2019-10-07 06:36 | US ---
EXAMINATION TYPE: US OB >= 14 wk fetus DATE OF EXAM: 10/07/2019 COMPARISON: Ultrasounds from June 2019. CLINICAL HISTORY: abdominal pain back pain, pelvic pain TECHNIQUE: Transabdominal (TA) GESTATIONAL AGE / DATING Physician Established: (21 weeks/1 days) EDC: 02/16/20 Dates by LMP: LMP unknown Dates by First Scan: (20 weeks/6 days) EDC: 02/18/20 Dates by Current Scan: (22 weeks/3 days) EDC: 02/07/20 SURVEY IUP: Single PLACENTA: Fundal PREVIA: No Previa LEROY: 10.6 cm Normal CERVICAL LENGTH (transabdominal: norm > 3.0cm): 3.4 cm BIOMETRY PRESENTATION: Vertex LIE: Longitudinal BPD: 5.4 cm 22 weeks / 3 days HC: 20.7 cm 22 weeks / 6 days AC: 17.4 cm 22 weeks / 3 days FL: 3.7 cm 21 weeks / 6 days ESTIMATED WEIGHT IN GRAMS: 482 grams ESTIMATED WEIGHT IN LBS/OZ: 1 lbs. 1 oz. WEIGHT PERCENTAGE BASED ON ESTABLISHED DATES: 92% HC/AC: 1.19 Normal FL/AC: 21% Normal HEART RATE: 150 bpm RHYTHM: Normal Redemonstration of single live intrauterine gestation. No cervical thickening. Normal cephalad presen tation. Normal heart tone recorded. Calculated amniotic fluid index within normal limits. No pl acenta previa. biometry measurements congruent and felt within normal limits. Satisfactory inte rval progression noted. IMPRESSION: As above.
[2019-10-07 08:26] VITALS: BP 142/78; PULSE 84; RESP 18; TEMP 98.5
--- NOTE | 2019-10-23 08:40 | P.MSEPDOC ---
Presenting Problems - Arrival Data Date of Arrival on Unit: 10/07/19 Time of Arrival on Unit: 04:50 Mode of Transport: Ambulatory - Complaint OB-Reason for Admission/Chief Complaint: Other Comment: pt arrived c/o back and abd discomfort Medical History - Information : 4 Para: 3 Term: 3 : 0 Abortions: Spontaneous or Elective: 0 Number of Living Children: 3 - Gestational Age Gestational Age by KIRIT (wks/days): 21 Weeks and 1 Days - History Complications: Chronic HTN, GDM Review of Systems - Review of Systems Constitutional: No problems Breast: No problems ENT: No problems Cardiovascular: No problems Respiratory: No problems Gastrointestinal: No problems Genitourinary: Urgency Musculoskeletal: No problems Neurological: No problems Skin: No problems Vital Signs - Temperature Temperature: 98.5 F Temperature Source: Oral - Pulse Right Brachial Pulse Rate: 84 Pulse Assessment Method: Automatic Cuff - Respirations Respiratory Rate: 18 Oxygen Delivery Method: Room Air - Blood Pressure Right Arm Blood Pressure: 142/78 Blood Pressure Mean: 99 Blood Pressure Source: Automatic Cuff Medical Screen Scoring (Pre) - Cervical Exam Dilation: Exam Deferred Effacement: Exam Deferred Membranes: Intact - Uterine Contractions Frequency: N/A Duration: N/A Intensity: N/A - Maternal Vital Signs Maternal Temperature: N/A Signs of Preeclampsia: N/A Maternal Respirations: N/A - Maternal Trauma Maternal Trauma: N/A - Assessment - Baby A Baseline FHR: 150 Position: N/A Station: N/A - Total Score - Baby A Total Score - Baby A: 0 - Total Score - Baby B Total Score - Baby B: 0 - Total Score - Baby C Total Score - Baby C: 0 - Level of Risk - Baby A Level of Risk - Baby A: Low (0-5) - Level of Risk - Baby B Level of Risk - Baby B: Low (0-5) - Level of Risk - Baby C Level of Risk - Baby C: Low (0-5) Physician Notification (Pre) - Physician Notified Physician Notified Date: 10/07/19 Physician Notified Time: 07:00 New Order Received: Yes - Notification Comment Comment: pt clean catch u/a and bedside U/S completed. Dr Chavez in department and assess and evualted pt with new orders recieved. pt to keep scheduled appointment iwth dr jewell tomorrow and to start antibiotic today that dr reno is prescribed and pt to drink lot of water. pt discharged with instructions Disposition - Disposition OB Disposition: Discharge to home Discharge Date: 10/07/19 Discharge Time: 08:15 I agree with the RN Medical Screening Exam: Yes Risk & Benefit of care provided described in d/c instruction: Yes Diagnosis: back pain in
== END 2019-10-07 08:15 | disposition home or self-care (01) ==
LOC: FBPOP 04:50
PROVIDERS: ATTEND Obstetrics & Gynecology
DX: O99.89 Other specified diseases and conditions complicating pregnancy, childbirth and the puerperium (principal); M54.9 Dorsalgia, unspecified; Z3A.21 21 weeks gestation of pregnancy
CPT/HCPCS: 81001; 76805; G0463; 99213

== ENCOUNTER 2020-01-21 14:46 | Inpatient (IN) | payer OTHER ==
[2020-01-21] MEDS ORDERED: LABETALOL 5 MG/ML VIAL MDV IVP PRN ×2 (15:17)
[2020-01-21] MEDS ORDERED: hydrALAZINE HCL 20 MG/ML 1 ML VIAL IVP PRN (15:17)
[2020-01-21] MEDS ORDERED: LACTATED RINGERS 1,000 ML IV SCH ×2 (15:30→16:45)
[2020-01-21 15:46] LABS: Amorphous Sediment,Urine Occasional /hpf; Appearance,Urine Cloudy (Clear); Bacteria,Urine Rare /hpf; Bilirubin,Urine Negative (Negative); Blood,Urine Trace (Negative); Color,Urine Yellow; Glucose,Urine (UA) Negative (Negative); Ketones,Urine 1+ (Negative); Leukocyte Esterase,Urine Large (Negative); Mucus,Urine Occasional /hpf; Nitrite,Urine Negative (Negative); PH, Urine 6.5 (5.0-8.0); Protein,Urine 1+ (Negative); RBC,Urine 1 /hpf (0-5); Specific Gravity,Urine 1.025 (1.001-1.035); Squamous Epithelial Cell,Urine 16 /hpf (0-4); Urobilinogen,Urine <2.0 mg/dL (<2.0); WBC,Urine 58 /hpf (0-5)
[2020-01-21 15:47] LABS: Creatinine,Urine Random 275.2 mg/dL
[2020-01-21 15:58] LABS: Basophils % (A) 0 %; Eosinophils # (A) 0.1 k/uL (0-0.7); Eosinophils % (A) 1 %; HCT 32.6 % (34.0-46.0); HGB 10.9 gm/dL (11.4-16.0); Hypochromasia Slight; Lymphocytes # (A) 1.3 k/uL (1.0-4.8); Lymphocytes % (A) 12 %; MCH 27.7 pg (25.0-35.0); MCHC 33.5 g/dL (31.0-37.0); MCV 82.7 fL (80.0-100.0); Mean Platelet Volume 7.9; Monocytes # (A) 0.4 k/uL (0-1.0); Monocytes % (A) 3 %; Neutrophils # (A) 9.2 k/uL (1.3-7.7); Neutrophils % (A) 84 %; Platelet Count 205 k/uL (150-450); Poikilocytosis Slight; RBC 3.95 m/uL (3.80-5.40); RDW 15.3 % (11.5-15.5)
[2020-01-21 16:07] LABS: ALT 12 U/L (4-34); AST 23 U/L (14-36); African American GFR (CKD) >90 (>60 ml/min/1.73 sqM); Blood Urea Nitrogen 13 mg/dL (7-17); LDH 411 U/L (313-618); Non-African American GFR(CKD) 80 (>60 ml/min/1.73 sqM); Uric Acid 6.3 mg/dL (3.7-7.4)
[2020-01-21 16:08] LABS: Glucose,Whole Blood 68 mg/dL (75-99)
[2020-01-21 16:14] LABS: INR 0.9 (<1.2); Partial Thromboplastin Time 22.3 sec (22.0-30.0); Prothrombin Time 9.3 sec (9.0-12.0)
--- NOTE | 2020-01-21 16:24 | US ---
EXAMINATION TYPE: US OB limited DATE OF EXAM: 01/21/2020 COMPARISON: US CLINICAL HISTORY: LEROY and position. Elevated blood pressure, patient stated has been leaking fluid va ginally EXAM PERFORMED: Transabdominal (TA) GESTATIONAL AGE / DATING Physician Established: (36 weeks/3 days) EDC: 02/15/2020 No growth performed on today?s study per ordering physician SURVEY PLACENTA: fundal PREVIA: no previa LEROY: 0.78cm Oligohydraminos CERVICAL LENGTH (transabdominal: norm > 3.0cm): 3.0 cm PRESENTATION: cephalic LIE: long lie HEART RATE: 128 bpm RHYTHM: Normal Abnormal LEROY is noted. Tech findings reported to patient's RN, Vianey, at exam's end. JJ IMPRESSION: Limited scan. Cephalic presentation. Oligohydramnios. heart rate detected at 128 b pm.
[2020-01-21] MEDS ORDERED: CITRIC ACID-SODIUM CITRATE 15 ML CUP PO ONE (16:35)
[2020-01-21] MEDS ORDERED: CALCIUM GLUCONATE 1 GM/10 ML VIAL IV PRN (17:17)
[2020-01-21] MEDS ORDERED: METOCLOPRAMIDE 5 MG/ML 2 ML VIAL IVP PRN (17:19)
[2020-01-21] MEDS ORDERED: ONDANSETRON 4 MG/2 ML VIAL IVP PRN (17:19)
[2020-01-21] MEDS ORDERED: diphenhydrAMINE 50 MG CAP PO PRN (17:19)
[2020-01-21] MEDS ORDERED: diphenhydrAMINE 25 MG CAP PO PRN (17:19)
[2020-01-21] MEDS ORDERED: diphenhydrAMINE 50 MG/ML 1 ML VIAL IVP PRN ×2 (17:19)
[2020-01-21] MEDS ORDERED: NALOXONE 0.4 MG/ML 1 ML VIAL IV PRN (17:19)
[2020-01-21] MEDS ORDERED: ZOLPIDEM 5 MG TAB PO PRN (17:19)
[2020-01-21] MEDS ORDERED: ACETAMINOPHEN TAB 325 MG TAB PO PRN (17:19)
[2020-01-21] MEDS ORDERED: ONDANSETRON 4 MG/2 ML VIAL ONE (17:20)
[2020-01-21] MEDS ORDERED: ePHEDrine SULFATE/0.9% NACL/PF 50 MG/5 ML SYRINGE IV ONE (17:20)
[2020-01-21] MEDS ORDERED: NALBUPHINE 10 MG/ML (1 ML AMP) ONE (17:20)
[2020-01-21] MEDS ORDERED: OXYTOCIN 10 UNIT/ML 1 ML VIAL ONE (17:20)
[2020-01-21] MEDS ORDERED: LABETALOL 5 MG/ML VIAL MDV ONE (17:20)
[2020-01-21] MEDS ORDERED: MORPHINE SULFATE (PF) 0.3 MG/0.3 ML SYR ONE (17:20)
[2020-01-21] MEDS ORDERED: MAGNESIUM SULFATE-WATER PMX 4 GM in WATER FOR INJECTION 1 100ML.BAG IVPB ONE (17:30)
[2020-01-21] MEDS ORDERED: OXYTOCIN 20 UNITS/1000 ML NS 1,000 ML IV SCH (17:30)
[2020-01-21] MEDS ORDERED: ACETAMINOPHEN IV (For NPO) 1,000 MG in EMPTY BAG 1 BAG IVPB ONE (18:00)
--- NOTE | 2020-01-21 18:16 | P.HPOB ---
History of Present Illness H&P Date: 01/21/20 Chief Complaint: IUP @ 36 2/7 weeks This is a 34-year-old 003 at 36-2/7 weeks, EDC of 02/17 based on first trimester ultrasound. she presents from the office with elevated blood pressures. she was in the office for routine NST and elevated blood pressures werr noted in the office 170s over 100s. Patientcomplaints ofa headache for the last 3 days, and epigastric pain. Patient also was seen at maternal medicine for insulin-dependent diabetes, she was just placed on insulin per patient. LEROY donetoday less than 1. Patient has had inconsistent care. Patient has a history of 3 prior vaginal deliveries was is insistent on a C- section with tubal ligation. on bloodwork this patient has a blood type of O+, rubella status immune, B surface is negative, GBS unknown secondary to gestational age. Review of Systems Constitutional: Denies chills, Denies fatigue, Denies fever Ears, nose, mouth and throat: Reports headache Cardiovascular: Reports leg edema Respiratory: Denies dyspnea Gastrointestinal: Denies constipation, Denies diarrhea, Denies nausea, Denies vomiting Genitourinary: Reports Past Medical History Past Medical History: GERD/Reflux History of Any Multi-Drug Resistant Organisms: None Reported Additional Past Surgical History / Comment(s): COLONOSCOPY Past Anesthesia/Blood Transfusion Reactions: No Reported Reaction Past Psychological History: No Psychological Hx Reported Smoking Status: Never smoker Past Alcohol Use History: None Reported Past Drug Use History: None Reported - Past Family History Mother History Unknown: Yes Medications and Allergies Home Medications Medication Instructions Recorded Confirmed Type Insulin Aspart [NovoLOG] 10 units SQ TID-W/MEALS 01/21/20 01/21/20 History Insulin Glargine [Lantus] 20 unit SQ HS 01/21/20 01/21/20 History Allergies Allergy/AdvReac Type Severity Reaction Status Date / Time citalopram [From Celexa] AdvReac JOINT PAIN Verified 01/21/20 15:25 sertraline [From Zoloft] AdvReac Abdominal Verified 01/21/20 15:25 Pain Exam Osteopathic Statement: *. No significant issues noted on an osteopathic structural exam other than those noted in the History and Physical/Consult. Vital Signs Temp Pulse Resp BP Pulse Ox 01/21/20 16:38 96.3 F L 86 15 170/100 100 Intake and Output 01/21/20 01/21/20 01/21/20 06:59 14:59 22:59 Other: Weight 94.801 kg Targeted physical exam is performed in this date and supervisor cab a well-nourished well-developed female in obvious discomfort and ill appearing. Yudy athing is noted to be nonlabored, heart has a regular rate and rhythm, abdomen is gravid, heart tones are noted to be category 1 and she is shon every 2-3 minutes. On cervical exam she was 4/thick/high. Results Result Diagrams: 01/21/20 15:47 01/21/20 15:47 Abnormal Lab Results - Last 24 Hours (Table) 01/21/20 01/21/20 01/21/20 Range/Units 15:28 15:28 15:47 WBC 11.0 H (3.8-10.6) k/uL Hgb 10.9 L (11.4-16.0) gm/dL Hct 32.6 L (34.0-46.0) % Neutrophils # 9.2 H (1.3-7.7) k/uL Fibrinogen (200-500) mg/dL POC Glucose (mg/dL) (75-99) mg/dL Urine Appearance Cloudy H (Clear) Urine Protein 1+ H (Negative) Urine Ketones 1+ H (Negative) Urine Blood Trace H (Negative) Ur Leukocyte Esterase Large H (Negative) Urine WBC 58 H (0-5) /hpf Ur Squamous Epith Cells 16 H (0-4) /hpf Amorphous Sediment Occasional H (None) /hpf Urine Bacteria Rare H (None) /hpf Urine Mucus Occasional H (None) /hpf U Random Total Protein 21 H (<12) mg/dL 01/21/20 01/21/20 Range/Units 15:47 16:07 WBC (3.8-10.6) k/uL Hgb (11.4-16.0) gm/dL Hct (34.0-46.0) % Neutrophils # (1.3-7.7) k/uL Fibrinogen 547 H (200-500) mg/dL POC Glucose (mg/dL) 68 L (75-99) mg/dL Urine Appearance (Clear) Urine Protein (Negative) Urine Ketones (Negative) Urine Blood (Negative) Ur Leukocyte Esterase (Negative) Urine WBC (0-5) /hpf Ur Squamous Epith Cells (0-4) /hpf Amorphous Sediment (None) /hpf Urine Bacteria (None) /hpf Urine Mucus (None) /hpf U Random Total Protein (<12) mg/dL Assessment and Plan (1) 36 weeks gestation of Current Visit: Yes Status: Acute Code(s): Z3A.36 - 36 WEEKS GESTATION OF SNOMED Code(s): 34668308 (2) Preeclampsia Current Visit: Yes Status: Acute Code(s): O14.90 - UNSPECIFIED PRE- ECLAMPSIA, UNSPECIFIED TRIMESTER SNOMED Code(s): 970640033 (3) Oligohydramnios Current Visit: Yes Status: Acute Code(s): O41.00X0 - OLIGOHYDRAMNIOS, UNSP TRIMESTER, NOT APPLICABLE OR UNSP SNOMED Code(s): 84517058 (4) Limited care Current Visit: Yes Status: Acute Code(s): O09.30 - SUPRVSN OF PREG W INSUFFICIENT ANTENAT CARE, UNSP TRIMESTER SNOMED Code(s): 282162213 Plan: Patient is admitted to labor and delivery in primary with tubal ligation. Discussion with patient regarding primary and questions are answered. Patient is adamant that she would like a . Given her blood pressures are significantly elevated despite hydralazine treatment delivery is warranted. We'll plan magnesium after c section
--- NOTE | 2020-01-21 18:21 | P.OP ---
Date of Procedure: 01/21/20 Preoperative Diagnosis: IUP at 36 and 2/sevenths weeks, oligohydramnios, diabetes mellitus, severe preeclampsia Postoperative Diagnosis: same Procedure(s) Performed: primary low transverse section Anesthesia: spinal Surgeon: Radha Day [employer] Project Engineer #1: Edgardo Bustos Pathology: other (placenta) Condition: stable Disposition: observation Indications for Procedure: this 34-year-old 4 para 3003 presented to labor and delivery with noted elevated blood pressures. Patient had been being monitored for questionable low amniotic fluid index, LEROY here on the floor was noted to be less than 1. Given blood pressures being elevated 170s over 100s and patient's insistence request for primary with tubal ligation, patient was taken back for primary with tubal ligation Operative Findings: normal uterus tubes and ovaries were appreciated, viable male infant was delivered at 1742, weight of 7 lbs. 9 oz. or 3440 g, Apgars of 9 and 9 at one and 5 minutes respectively. A loose nuchal cord was noted at delivery. Description of Procedure: patient was taken back to the operating suite where spinal anesthesia was found be adequate. She was then prepped and draped in the normal sterile fashion in the dorsal supine position. A Pfannenstiel skin incision was made with the scalpel and carried through the underlying layer of fascia. Fascia was then incised in the midline and the incision was extended laterally. The superior aspect the fascial incision was then grasped shaun clamps, elevated and underlying rectus muscle was dissected off sharply. Attention was then turned the inferior aspect of the fascial incision which was grasped shaun clamps, elevated and underlying rectus muscle was dissected off sharply. The peritoneum was then identified and entered. Bladder blade was then inserted into the pelvis. The vesicouterine peritoneum was identified and a bladder flap was then created using sharp and blunt dissection. Hysterotomy incision was then made with the scalpel amniotomy was performed and scant clear fluid was noted. The infant was encountered in a vertex presentation with a loose nuchal cord was delivered in the usual presentation. The umbilical cords was doubly clamped and cut and the was handed off to awaiting RN. Cord blood was then taken. The placenta was then removed manually and the uterus was cleared of all clots and debris. The uterus was then removed from the abdomen and the hysterotomy incision was closed with 0 Vicryl in a running locked fashion area and a small amount of bleeding was noted on the left-hand side of the uterine incision therefore a [id number] suture was used to obtain hemostasis. The gutters were cleared of all clots and debris and the uterus was returned to the abdomen. The hysterotomy incision was inspected and found to be hemostatic once again. The peritoneum was then loosely reapproximated. The fascia was then closed with 0 Vicryl in a running fashion from one lateral edge the midline and the other lateral edge the midline. The rectus muscles were inspected and found to be hemostatic prior to closure of the fascia. The subcutaneous tissue was then irrigated and found to be hemostatic. The subcu tissue was then closed with 3-0 Vicryl in a running fashion. The skin was then closed with 4-0 Vicryl in a subcu taken fashion. Steri-Strips and sterile dressings were applied. All counts were noted be correct 2. Patient and tolerated delivery well and are resting comfortably.
[2020-01-21] MEDS: MAGNESIUM SULFATE-WATER PMX 20 GM in WATER FOR INJECTION 1 500ML.BAG IV SCH (18:46)
[2020-01-21] MEDS ORDERED: IBUPROFEN IV 800 MG in SODIUM CHLORIDE 0.9% 250 ML IV ONE (19:00)
[2020-01-21] MEDS ORDERED: LABETALOL 200 MG TAB PO STA (19:50)
[2020-01-21] MEDS: LACTATED RINGERS 1,000 ML IV SCH (20:01)
[2020-01-21 21:39] LABS: Creatinine,Urine Random 282.1 mg/dL; Protein/Creatinine Ratio,Urine 0.067
[2020-01-21] MEDS: SENNOSIDES-DOCUSATE SODIUM 1 EACH TAB PO SCH (22:55)
[2020-01-22 01:09] LABS: Basophils % (A) 0 %; Eosinophils # (A) 0.1 k/uL (0-0.7); Eosinophils % (A) 0 %; HCT 27.4 % (34.0-46.0); Lymphocytes # (A) 1.2 k/uL (1.0-4.8); Lymphocytes % (A) 9 %; MCH 27.2 pg (25.0-35.0); MCV 82.4 fL (80.0-100.0); Mean Platelet Volume 7.6; Monocytes # (A) 0.4 k/uL (0-1.0); Monocytes % (A) 3 %; Neutrophils # (A) 10.6 k/uL (1.3-7.7); Neutrophils % (A) 86 %; Platelet Count 161 k/uL (150-450); Poikilocytosis Slight; RBC 3.32 m/uL (3.80-5.40); RDW 15.5 % (11.5-15.5); WBC 12.4 k/uL (3.8-10.6)
[2020-01-22 01:20] LABS: ALT 9 U/L (4-34); AST 20 U/L (14-36); African American GFR (CKD) >90 (>60 ml/min/1.73 sqM); Blood Urea Nitrogen 11 mg/dL (7-17); LDH 400 U/L (313-618); Non-African American GFR(CKD) >90 (>60 ml/min/1.73 sqM); Uric Acid 6.1 mg/dL (3.7-7.4)
[2020-01-22 01:23] LABS: INR 0.9 (<1.2); Partial Thromboplastin Time 22.4 sec (22.0-30.0); Prothrombin Time 9.3 sec (9.0-12.0)
[2020-01-22] MEDS: MAGNESIUM SULFATE-WATER PMX 20 GM in WATER FOR INJECTION 1 500ML.BAG IV SCH (05:28)
--- NOTE | 2020-01-22 06:47 | P.PN ---
Progress Note - Text Date: 01/22/2020 Time: 06:43 The patient is status post section Vital signs stable VAS: 0-10 Patient has no complaints of pain. The patient incurred some minimal itching yesterday, this itching is now subsiding. Pain meds to be managed by service.
--- NOTE | 2020-01-22 08:27 | P.PNOBGPC ---
Subjective - Subjective Principal diagnosis: POD 1 LTCS with TL Interval history: Patient did well overnight. She remained on magnesium, and is without complaints this morning. She is tolerating clear liquids without nausea or vomiting. She states her lochia is minimal, Sierra remains Patient reports: Reports pain well controlled [place]: doing well Objective - Vital Signs Latest vital signs: Vital Signs Temp Pulse Resp BP Pulse Ox 01/22/20 07:41 96.1 F L 68 14 111/68 98 01/22/20 04:00 96.9 F L 70 16 121/74 99 01/21/20 23:00 96.8 F L 79 16 134/80 100 01/21/20 20:07 74 16 164/94 100 01/21/20 19:37 82 16 177/105 100 01/21/20 19:07 96.5 F L 78 16 156/80 100 01/21/20 18:52 78 15 152/80 98 01/21/20 18:37 77 15 148/77 97 01/21/20 18:22 15 158/87 98 01/21/20 18:07 97.1 F L 91 15 158/87 99 01/21/20 16:38 96.3 F L 86 15 170/100 100 Intake and Output 01/21/20 01/22/20 01/22/20 22:59 06:59 14:59 Intake Total 2600 Output Total 400 1400 Balance -400 1200 Intake: IV 2100 ACETAMINOPHEN IV (For NPO 400 ) 1,000 mg In Empty Bag 1 bag @ 400 mls/hr IVPB ONCE ONE Rx#:[id number] Ibuprofen IV 800 mg In 500 Sodium Chloride 0.9% 250 ml @ 500 mls/hr IV ONCE ONE Rx#:[id number] Lactated Ringers 1,000 ml 600 @ 125 mls/hr IV .Q8H GAYATRI Rx#:[id number] Magnesium Sulfate-Water 600 Pmx 20 gm In Water For Injection 1 500ml.bag @ 2 GM/HR 50 mls/hr IV .Q10H GAYATRI Rx#:[id number] Intake, IV Titration 500 Amount Magnesium Sulfate-Water 500 Pmx 20 gm In Water For Injection 1 500ml.bag @ 2 GM/HR 50 mls/hr IV .Q10H GAYATRI Rx#:[id number] Output: Urine 400 1400 Other: Voiding Method Indwelling Catheter Weight 94.801 kg - Exam Extremities: Present: normal, edema Abdomen: Present: normal appearance Incision: Present: normal Uterus: Present: normal, firm - Labs Labs: Abnormal Lab Results - Last 24 Hours (Table) 01/21/20 01/21/20 01/21/20 Range/Units 15:28 15:28 15:47 WBC 11.0 H (3.8-10.6) k/uL RBC (3.80-5.40) m/uL Hgb 10.9 L (11.4-16.0) gm/dL Hct 32.6 L (34.0-46.0) % Neutrophils # 9.2 H (1.3-7.7) k/uL Fibrinogen (200-500) mg/dL POC Glucose (mg/dL) (75-99) mg/dL Urine Appearance Cloudy H (Clear) Urine Protein 1+ H (Negative) Urine Ketones 1+ H (Negative) Urine Blood Trace H (Negative) Ur Leukocyte Esterase Large H (Negative) Urine WBC 58 H (0-5) /hpf Ur Squamous Epith Cells 16 H (0-4) /hpf Amorphous Sediment Occasional H (None) /hpf Urine Bacteria Rare H (None) /hpf Urine Mucus Occasional H (None) /hpf U Random Total Protein 21 H (<12) mg/dL 01/21/20 01/21/20 01/22/20 Range/Units 15:47 16:07 00:57 WBC 12.4 H (3.8-10.6) k/uL RBC 3.32 L (3.80-5.40) m/uL Hgb 9.0 L D (11.4-16.0) gm/dL Hct 27.4 L (34.0-46.0) % Neutrophils # 10.6 H (1.3-7.7) k/uL Fibrinogen 547 H (200-500) mg/dL POC Glucose (mg/dL) 68 L (75-99) mg/dL Urine Appearance (Clear) Urine Protein (Negative) Urine Ketones (Negative) Urine Blood (Negative) Ur Leukocyte Esterase (Negative) Urine WBC (0-5) /hpf Ur Squamous Epith Cells (0-4) /hpf Amorphous Sediment (None) /hpf Urine Bacteria (None) /hpf Urine Mucus (None) /hpf U Random Total Protein (<12) mg/dL Assessment and Plan (1) 36 weeks gestation of Current Visit: Yes Status: Acute Code(s): Z3A.36 - 36 WEEKS GESTATION OF SNOMED Code(s): 71261819 (2) Preeclampsia Current Visit: Yes Status: Acute Code(s): O14.90 - UNSPECIFIED PRE- ECLAMPSIA, UNSPECIFIED TRIMESTER SNOMED Code(s): 904976978 (3) Oligohydramnios Current Visit: Yes Status: Acute Code(s): O41.00X0 - OLIGOHYDRAMNIOS, UNSP TRIMESTER, NOT APPLICABLE OR UNSP SNOMED Code(s): 33060176 (4) Limited care Current Visit: Yes Status: Acute Code(s): O09.30 - SUPRVSN OF PREG W INSUFFICIENT ANTENAT CARE, UNSP TRIMESTER SNOMED Code(s): 416054234 Plan: This 34-year-old G4 now P4 is doing well status post primary with tubal ligation. Patient was begun on labetalol 200 mg twice daily last evening for continued elevated blood pressures. Blood pressures this morning are controlled. We'll plan to continue magnesium for 24 hours, then discontinue. Plan to check blood sugars today and possibly start oral medications for diabetes management. Patient states understanding of the plan and denies questions.
[2020-01-22 08:54] LABS: Glucose,Whole Blood 173 mg/dL (75-99)
[2020-01-22] MEDS: LACTATED RINGERS 1,000 ML IV SCH ×2 (08:54→10:05)
[2020-01-22] MEDS: SENNOSIDES-DOCUSATE SODIUM 1 EACH TAB PO SCH ×2 (08:54→20:06)
[2020-01-22] MEDS: metFORMIN 500 MG TAB PO SCH ×2 (09:45→17:47)
[2020-01-22] MEDS: SIMETHICONE 80 MG CHEWABLE PO PRN (10:23)
[2020-01-22 12:28] LABS: Glucose,Whole Blood 138 mg/dL (75-99)
--- NOTE | 2020-01-22 14:17 | P.CONS ---
History of Present Illness - Reason for Consult Consult date: 01/22/20 Medical management Requesting physician: Radha Day - Chief Complaint High blood pressure - History of Present Illness This is a 34-year-old female with past medical history noted below who presented to labor and delivery with what appeared to be severe preeclampsia. Patient is postoperative day #1 status post . She is feeling fairly well right now. I was asked to see her for elevated blood pressure and history of insulin- dependent diabetes. Patient told me that she was diagnosed with diabetes during this . She never used insulin before. She has been using insulin at home for the past week and a half. She denies any history of essential hypertension otherwise. She said that she does not follow up with her regular doctor. Review of her chart reveals an A1c in the prediabetes range of 6.0 in October 2018. Patient received the beta load last night for elevated blood pressure and IV magnesium sulfate as well given preeclampsia. Currently her blood pressure is within acceptable range. Blood glucose is within acceptable range as well. She was started on metformin by primary team. Patient does not have any specific concerns or complaints otherwise. Review of Systems Review of system: 14 points review of systems were obtained and were negative except to what were mentioned in the HPI. Past Medical History Past Medical History: GERD/Reflux History of Any Multi-Drug Resistant Organisms: None Reported Additional Past Surgical History / Comment(s): COLONOSCOPY Past Anesthesia/Blood Transfusion Reactions: No Reported Reaction Past Psychological History: No Psychological Hx Reported Smoking Status: Never smoker Past Alcohol Use History: None Reported Past Drug Use History: None Reported - Past Family History Mother History Unknown: Yes Medications and Allergies Home Medications Medication Instructions Recorded Confirmed Type Insulin Aspart [NovoLOG] 10 units SQ TID-W/MEALS 01/21/20 01/21/20 History Insulin Glargine [Lantus] 20 unit SQ HS 01/21/20 01/21/20 History Allergies Allergy/AdvReac Type Severity Reaction Status Date / Time citalopram [From Celexa] AdvReac JOINT PAIN Verified 01/21/20 15:25 sertraline [From Zoloft] AdvReac Abdominal Verified 01/21/20 15:25 Pain Physical Exam Vitals: Vital Signs Temp Pulse Resp BP Pulse Ox 01/22/20 09:40 96.9 F L 77 14 122/72 98 01/22/20 07:41 96.1 F L 68 14 111/68 98 01/22/20 04:00 96.9 F L 70 16 121/74 99 01/21/20 23:00 96.8 F L 79 16 134/80 100 01/21/20 20:07 74 16 164/94 100 01/21/20 19:37 82 16 177/105 100 01/21/20 19:07 96.5 F L 78 16 156/80 100 01/21/20 18:52 78 15 152/80 98 01/21/20 18:37 77 15 148/77 97 01/21/20 18:22 15 158/87 98 01/21/20 18:07 97.1 F L 91 15 158/87 99 01/21/20 16:38 96.3 F L 86 15 170/100 100 Intake and Output 01/21/20 01/22/20 01/22/20 22:59 06:59 14:59 Intake Total 2600 Output Total 400 1400 600 Balance -400 1200 -600 Intake: IV 2100 ACETAMINOPHEN IV (For NPO 400 ) 1,000 mg In Empty Bag 1 bag @ 400 mls/hr IVPB ONCE ONE Rx#:[id number] Ibuprofen IV 800 mg In 500 Sodium Chloride 0.9% 250 ml @ 500 mls/hr IV ONCE ONE Rx#:[id number] Lactated Ringers 1,000 ml 600 @ 125 mls/hr IV .Q8H GAYATRI Rx#:[id number] Magnesium Sulfate-Water 600 Pmx 20 gm In Water For Injection 1 500ml.bag @ 2 GM/HR 50 mls/hr IV .Q10H GAYATRI Rx#:[id number] Intake, IV Titration 500 Amount Magnesium Sulfate-Water 500 Pmx 20 gm In Water For Injection 1 500ml.bag @ 2 GM/HR 50 mls/hr IV .Q10H GAYATRI Rx#:[id number] Output: Urine 400 1400 600 Other: Voiding Method Indwelling Catheter Weight 94.801 kg General: The patient is awake and alert, in no distress Eye: there is normal conjunctiva bilaterally. Neck: The neck is supple, there is no JVD. Cardiovascular: Normal S1-S2, no S3-S4, no murmurs. Respiratory: Lungs clear to auscultation bilaterally Gastrointestinal: Abdomen is soft, nontender Musculoskeletal: There is +1 pedal edema. Neurological:. Speech is normal. Skin: Skin is warm and dry Results CBC & Chem 7: 01/22/20 00:57 01/22/20 00:57 Labs: Abnormal Lab Results - Last 24 Hours (Table) 01/21/20 01/21/20 01/21/20 Range/Units 15:28 15:28 15:47 WBC 11.0 H (3.8-10.6) k/uL RBC (3.80-5.40) m/uL Hgb 10.9 L (11.4-16.0) gm/dL Hct 32.6 L (34.0-46.0) % Neutrophils # 9.2 H (1.3-7.7) k/uL Fibrinogen (200-500) mg/dL POC Glucose (mg/dL) (75-99) mg/dL Urine Appearance Cloudy H (Clear) Urine Protein 1+ H (Negative) Urine Ketones 1+ H (Negative) Urine Blood Trace H (Negative) Ur Leukocyte Esterase Large H (Negative) Urine WBC 58 H (0-5) /hpf Ur Squamous Epith Cells 16 H (0-4) /hpf Amorphous Sediment Occasional H (None) /hpf Urine Bacteria Rare H (None) /hpf Urine Mucus Occasional H (None) /hpf U Random Total Protein 21 H (<12) mg/dL 01/21/20 01/21/20 01/22/20 Range/Units 15:47 16:07 00:57 WBC 12.4 H (3.8-10.6) k/uL RBC 3.32 L (3.80-5.40) m/uL Hgb 9.0 L D (11.4-16.0) gm/dL Hct 27.4 L (34.0-46.0) % Neutrophils # 10.6 H (1.3-7.7) k/uL Fibrinogen 547 H (200-500) mg/dL POC Glucose (mg/dL) 68 L (75-99) mg/dL Urine Appearance (Clear) Urine Protein (Negative) Urine Ketones (Negative) Urine Blood (Negative) Ur Leukocyte Esterase (Negative) Urine WBC (0-5) /hpf Ur Squamous Epith Cells (0-4) /hpf Amorphous Sediment (None) /hpf Urine Bacteria (None) /hpf Urine Mucus (None) /hpf U Random Total Protein (<12) mg/dL 01/22/20 01/22/20 Range/Units 08:47 12:17 WBC (3.8-10.6) k/uL RBC (3.80-5.40) m/uL Hgb (11.4-16.0) gm/dL Hct (34.0-46.0) % Neutrophils # (1.3-7.7) k/uL Fibrinogen (200-500) mg/dL POC Glucose (mg/dL) 173 H 138 H (75-99) mg/dL Urine Appearance (Clear) Urine Protein (Negative) Urine Ketones (Negative) Urine Blood (Negative) Ur Leukocyte Esterase (Negative) Urine WBC (0-5) /hpf Ur Squamous Epith Cells (0-4) /hpf Amorphous Sediment (None) /hpf Urine Bacteria (None) /hpf Urine Mucus (None) /hpf U Random Total Protein (<12) mg/dL Assessment and Plan Assessment: 1. Postoperative day #1 status post with tubal ligation: Postoperative care per [facility] [employer]. 2. History of gestational diabetes acquiring insulin. Currently blood glucose within acceptable range. Continue current dose of metformin. I would add sliding scale insulin. Awaiting A1c. 3. Hypertension in setting of severely preeclampsia, currently blood pressure within acceptable range. Patient denies any history of hypertension in the past. We'll continue to monitor closely. Today, I reviewed her medication list and lab work results. I would continue to follow up on the patient closely with you. Thank you very much for the consultation
[2020-01-22] MEDS: IBUPROFEN 600 MG TAB PO PRN (16:45)
[2020-01-22 16:46] LABS: Hemoglobin A1C 5.7 % (4.0-6.0)
[2020-01-22 17:35] LABS: Glucose,Whole Blood 118 mg/dL (75-99)
[2020-01-22] MEDS: INSULIN ASPART (NovoLOG) 100 UNIT/ML VIAL SQ SCH ×2 (18:28→21:40)
[2020-01-22 20:50] LABS: Glucose,Whole Blood 142 mg/dL (75-99)
[2020-01-22] MEDS: HYDROcodone/APAP 5-325MG 1 EACH TAB PO PRN (22:47)
[2020-01-23] MEDS: IBUPROFEN 600 MG TAB PO PRN ×2 (04:01→16:53)
[2020-01-23] MEDS: SIMETHICONE 80 MG CHEWABLE PO PRN ×3 (04:43→14:37)
[2020-01-23 07:35] LABS: Glucose,Whole Blood 85 mg/dL (75-99)
[2020-01-23] MEDS: SENNOSIDES-DOCUSATE SODIUM 1 EACH TAB PO SCH ×2 (07:53→20:08)
--- NOTE | 2020-01-23 08:36 | P.PNOBGPC ---
Subjective - Subjective Patient reports: Reports appetite normal, Reports voiding normally, Reports pain well controlled : in NICU Objective - Vital Signs Latest vital signs: Vital Signs Temp Pulse Resp BP Pulse Ox 01/23/20 04:55 98.0 F 84 16 135/69 99 01/23/20 04:00 97.6 F 82 16 149/84 98 01/23/20 00:00 98.2 F 87 18 140/85 98 01/22/20 20:00 98.0 F 85 18 129/81 99 01/22/20 16:00 98.6 F 81 17 125/74 01/22/20 12:00 97.1 F L 80 16 112/68 98 01/22/20 09:40 96.9 F L 77 14 122/72 98 Intake and Output 01/22/20 01/23/20 01/23/20 22:59 06:59 14:59 Output Total 1500 1800 300 Balance -1500 -1800 -300 Output: Urine 1500 1800 300 Uretheral (Sierra) 300 - Exam Extremities: Present: normal Abdomen: Present: normal appearance, soft. Absent: distention, tenderness Incision: Present: normal, dry, intact Uterus: Present: normal, firm (The uterine fundus is tonic and appropriately tender just below the umbilicus.) - Labs Labs: Abnormal Lab Results - Last 24 Hours (Table) 01/22/20 01/22/20 01/22/20 Range/Units 08:47 12:17 17:30 POC Glucose (mg/dL) 173 H 138 H 118 H (75-99) mg/dL 01/22/20 Range/Units 20:47 POC Glucose (mg/dL) 142 H (75-99) mg/dL Assessment and Plan (1) Status post section Current Visit: Yes Status: Acute Code(s): Z98.891 - HISTORY OF UTERINE SCAR FROM PREVIOUS SURGERY SNOMED Code(s): 774105335 Plan: Blood pressures have been somewhat labile by nursing report with some on one arm ranging in the 170s over 90 but the recorded blood pressures in the chart are much more stable. There is a consideration for beginning antihypertensive therapy. At this time I will hold the addition of labetalol pending more demonstration of blood pressure lability. Internal medicine is seeing the patient is well and will be solicited for an opinion. Blood sugars appear at this time to be reasonably well managed. I have strongly encouraged the patient ambulating in the hallways at least 4 times daily. She will continue to have close surveillance along with routine postoperative management.
[2020-01-23] MEDS ORDERED: LABETALOL 100 MG TAB PO SCH (09:00)
[2020-01-23 12:28] LABS: Glucose,Whole Blood 109 mg/dL (75-99)
--- NOTE | 2020-01-23 12:47 | P.PN ---
Subjective Progress Note Date: 01/23/20 Patient is feeling well today. Blood glucose and blood pressure within acceptable range. Patient did not require any insulin on the sliding scale. Objective - Vital Signs Vital signs: Vital Signs Temp 98.7 F 01/23/20 08:00 Pulse 82 01/23/20 08:00 Resp 18 01/23/20 08:00 BP 143/67 01/23/20 08:00 Pulse Ox 99 01/23/20 08:00 Intake & Output 01/22/20 01/23/20 01/23/20 18:59 06:59 18:59 Intake Total 240 Output Total 2100 1800 800 Balance -2100 -1800 -560 Intake: Oral 240 Output: Urine 2099 1800 800 Uretheral (Sierra) 300 Other: # Voids 1 - Exam General: The patient is awake and alert, in no distress Eye: there is normal conjunctiva bilaterally. Neck: The neck is supple, there is no JVD. Cardiovascular: Normal S1-S2, no S3-S4, no murmurs. Respiratory: Lungs clear to auscultation bilaterally Gastrointestinal: Abdomen is soft, nontender Musculoskeletal: There is no pedal edema. Neurological:. Speech is normal. Skin: Skin is warm and dry - Labs CBC & Chem 7: 01/22/20 00:57 01/22/20 00:57 Labs: Abnormal Lab Results - Last 24 Hours (Table) 01/22/20 01/22/20 01/23/20 Range/Units 17:30 20:47 12:26 POC Glucose (mg/dL) 118 H 142 H 109 H (75-99) mg/dL Assessment and Plan Assessment: 1. Postoperative day #2 status post with tubal ligation: Postoperative care per [employer] TECHNICIAN. 2. History of gestational diabetes acquiring insulin. Currently blood glucose within acceptable range. A1c 5.7. Discontinue metformin. Continue sliding scale for another day. 3. Hypertension in setting of severely preeclampsia, currently blood pressure within acceptable range. Patient denies any history of hypertension in the past. We'll continue to monitor closely. I encouraged the patient to continue her efforts regarding lifestyle modification and exercise. Repeat A1c in 3-4 months. No need for treatment for diabetes or hypertension at this time. Encouraged to establish primary care physician in the community. Today, I reviewed her medication list and lab work results. I would continue to follow up on the patient closely with you.
[2020-01-23] MEDS: INSULIN ASPART (NovoLOG) 100 UNIT/ML VIAL SQ SCH ×2 (12:53→18:15)
[2020-01-23] MEDS: HYDROcodone/APAP 5-325MG 1 EACH TAB PO PRN (14:37)
[2020-01-23 16:44] LABS: Glucose,Whole Blood 127 mg/dL (75-99)
[2020-01-23 22:32] LABS: Glucose,Whole Blood 105 mg/dL (75-99)
[2020-01-24 01:12] VITALS: RESP 16
[2020-01-24] MEDS ORDERED: LABETALOL 200 MG TAB PO STA (05:43)
--- NOTE | 2020-01-24 07:06 | P.PN ---
Progress Note - Text 01/23 646am 34-year-old female status post with a spinal Duramorph. Patient seen and evaluated this morning for postop pain control with a VAS of 2, patient had complains of mild pruritus treated with Benadryl. Doing better this morning.
[2020-01-24 07:28] LABS: Glucose,Whole Blood 135 mg/dL (75-99)
[2020-01-24] MEDS: SENNOSIDES-DOCUSATE SODIUM 1 EACH TAB PO SCH (07:35)
[2020-01-24] MEDS: IBUPROFEN 600 MG TAB PO PRN (07:35)
[2020-01-24] MEDS: INSULIN ASPART (NovoLOG) 100 UNIT/ML VIAL SQ SCH ×3 (07:36→07:37)
[2020-01-24] MEDS: LACTATED RINGERS 1,000 ML IV SCH (09:12)
[2020-01-24] MEDS: NIFEdipine XL 30 MG TAB.ER.24 PO SCH (09:19)
--- NOTE | 2020-01-24 10:34 | P.PN ---
Subjective Progress Note Date: 01/24/20 Patient is feeling well today. She had few elevated blood pressure reading last night. She received one-time dose of labetalol. She denies any headache or discomfort. Blood glucose within normal range. Objective - Vital Signs Vital signs: Vital Signs Temp 96 F L 01/24/20 08:00 Pulse 90 01/24/20 08:00 Resp 16 01/24/20 08:00 BP 134/76 01/24/20 08:00 Pulse Ox 98 01/24/20 08:00 Intake & Output 01/23/20 01/24/20 01/24/20 18:59 06:59 18:59 Intake Total 240 Output Total 1800 Balance -1560 Intake: Oral 240 Output: Urine 1800 Uretheral (Sierra) 300 Other: # Voids 1 2 2 - Exam General: The patient is awake and alert, in no distress Eye: there is normal conjunctiva bilaterally. Neck: The neck is supple, there is no JVD. Cardiovascular: Normal S1-S2, no S3-S4, no murmurs. Respiratory: Lungs clear to auscultation bilaterally Gastrointestinal: Abdomen is soft, nontender Musculoskeletal: There is no pedal edema. Neurological:. Speech is normal. Skin: Skin is warm and dry - Labs CBC & Chem 7: 01/22/20 00:57 01/22/20 00:57 Labs: Abnormal Lab Results - Last 24 Hours (Table) 01/23/20 01/23/20 01/23/20 Range/Units 12:26 16:42 22:30 POC Glucose (mg/dL) 109 H 127 H 105 H (75-99) mg/dL 01/24/20 Range/Units 07:27 POC Glucose (mg/dL) 135 H (75-99) mg/dL Assessment and Plan Assessment: 1. Postoperative day #3 status post with tubal ligation: Postoperative care per [employer] [facility]IST. 2. History of gestational diabetes acquiring insulin. Currently blood glucose within acceptable range. A1c 5.7. Discontinue metformin and sliding scale insulin. Recheck A1c with PCP in 3-4 months 3. Hypertension in setting of severely preeclampsia, labile blood pressure readings mostly on the higher end of normal and elevated BP. Started on nifedipine 30 mg daily. I encouraged the patient to continue her efforts regarding lifestyle mod ification and exercise. Repeat A1c in 3-4 months. Encouraged to establish primary care physician in the community. Today, I reviewed her medication list and lab work results. I would continue to follow up on the patient closely with you.
[2020-01-24] MEDS ORDERED: IBUPROFEN 600 MG TAB PO PRN (11:01)
--- NOTE | 2020-01-24 11:29 | P.DS ---
Providers Date of admission: 01/21/20 15:27 Expected date of discharge: 01/24/20 Attending physician: John Pearson Consults: 01/22/20 09:17 Consult Physician Stat Consulting Provider: Cinthia Marie Consult Reason/Comments: Uncontrolled new onset Type 2 Diabetes, Do you want consulting provider notified?: Yes Primary care physician: Stated None - Discharge Diagnosis(es) (1) Status post section Current Visit: Yes Status: Acute Hospital Course: The patient is a 34-year-old 4 para 3003 admitted at 36-2/7 weeks by good dating parameters. She presented from the office with elevated blood pressures where she had been having routine NST. Blood pressures the office were noted to be 170 over 100s with complaints of headache for 3 days as well as epigastric pain. She also had been diagnosed with diabetes which became insulin-dependent in the third trimester. She had been complaining of leaking of fluid which had not been able to be diagnosed with an amniotic fluid index in the range of 18 cm last week. On the day of admission, amniotic fluid index was less than 1 cm. She also had relatively inconsistent care throughout the . On labor and delivery, she was counseled regarding options and, despite being dilated to 4 cm, he elected to undergo primary low-transverse section with intraoperative bilateral tubal ligation using Filshie clips. The procedure was agreed to secondary to her significant blood pressures in the diagnosis of probable severe preeclampsia. Other laboratory measures for evidence of HELLP syndrome were negative. She was taken the operating room where she was delivered by primary low transverse section of a viable 7 lbs. 9 oz. baby boy with Apgars of 9 at 1 minute and 9 at 5 minutes. The was taken to the special care nursery for ongoing care. The patient's postoperative course was relatively unremarkable though she was placed on magnesium sulfate for 24 hours and had good blood pressure control during that time. After magnesium had been discontinued, she began to have more labile blood pressures. Medical consultation for both diabetes and blood pressure management was undertaken. Initially the patient did require several doses of sliding-scale insulin and had been placed also on metformin which was discontinued by the medical team. On postoperative day #3, the sliding-scale insulin was also discontinued as the patient's blood sugar remained in a manageable range and the patient was counseled to follow-up with primary care for further management of possible diabetes. Additionally, given the labile blood pressures, Procardia XL 30 mg was instituted on the morning of postoperative day #3. Patient requested discharged home on that day and was otherwise stable for discharge. We opted to follow blood pressures throughout the afternoon and, assuming relative normalcy, agreed to discharge her home in the evening on postoperative day #3 to follow-up in the office in 2 weeks for an incision check and blood pressure check and 6 weeks routinely. Should blood pressures on postoperative day #3 remained labile, discharge will be canceled for further evaluation. Discharge instructions included calling for any significantly increased bleeding, foul-smelling lochia, significantly increased fever abdominal pain, perineal complaints, breast complaints, incisional complaints, or anything else that concerned her. She was additionally instructed to have nothing in the vagina for at least 6 weeks time to include intercourse and to abstain from any heavy lifting over the same period of time. She was instructed to do no driving until off of all pain medications or 2 weeks' time, whichever came first. And she was lastly instructed to follow blood pressures at home and report anything that was consistently over 140/90. She understood all of her instructions and agrees to follow up as noted above. Discharge medications included only [id number] analgesic pain medications, she declined a prescription for narcotics. She was additionally given a prescription for Procardia XL 30 mg, 1 by mouth daily, #30 dispensed with 4 refills. Discharge hemoglobin and hematocrit were 9.0 and 27.4 respectively. As result, she was instructed to continue iron sulfate daily for at least 1 month. Maternal blood type is O+ and rubella status is immune. Procedures: #1. Primary low-transverse section #2. Intraoperative bilateral tubal occlusion with Filshie clips #3. Magnesium sulfate seizure prophylaxis #4. Internal medicine consultation Patient Condition at Discharge: Stable Plan - Discharge Summary New Discharge Prescriptions: No Action Insulin Glargine [Lantus] 20 unit SQ HS Insulin Aspart [NovoLOG] 10 units SQ TID-W/MEALS Discharge Medication List Insulin Aspart [NovoLOG] 10 units SQ TID-W/MEALS 01/21/20 [History] Insulin Glargine [Lantus] 20 unit SQ HS 01/21/20 [History] Follow up Appointment(s)/Referral(s): John Pearson MD [STAFF PHYSICIAN] - 2 Weeks Discharge Disposition: HOME SELF-CARE
[2020-01-24 15:08] VITALS: BP 143/73; PULSE 94; TEMP 98.3
[2020-01-24] MEDS: HYDROcodone/APAP 5-325MG 1 EACH TAB PO PRN (16:42)
== END 2020-01-24 17:00 | disposition home or self-care (01) | DRG 784 ==
LOC: FBPOP 14:46 → 4FBP 15:27
PROVIDERS: ADMIT Obstetrics & Gynecology; ATTEND Obstetrics & Gynecology
PROC: 10D00Z1 Extraction of Products of Conception, Low, Open Approach (ICD-10-PCS; principal; 2020-01-21 17:35)
PROC: 0UL70CZ Occlusion of Bilateral Fallopian Tubes with Extraluminal Device, Open Approach (ICD-10-PCS; principal; 2020-01-21 17:35)
DX: O14.14 Severe pre-eclampsia complicating childbirth (principal); O41.03X0 Oligohydramnios, third trimester, not applicable or unspecified; O69.81X0 Labor and delivery complicated by cord around neck, without compression, not applicable or unspecified; O24.424 Gestational diabetes mellitus in childbirth, insulin controlled; L29.9 Pruritus, unspecified; O99.72 Diseases of the skin and subcutaneous tissue complicating childbirth; O99.62 Diseases of the digestive system complicating childbirth; K21.9 Gastro-esophageal reflux disease without esophagitis; Z37.0 Single live birth; Z3A.36 36 weeks gestation of pregnancy; Z79.4 Long term (current) use of insulin; Z88.8 Allergy status to other drugs, medicaments and biological substances; Z30.2 Encounter for sterilization
CPT/HCPCS: 59025; 76815; 81001; 82565; 82570; 83036; 83615; 84156; 84450; 84460; 84520; 84550; 85025; 85384; 85610; 85730; 86850; 86900; 86901; 88307; 99213

== ENCOUNTER → 2021-03-09 | Outpatient (CLI) | payer OTHER | END | disposition home or self-care (01) | LOC: LABWHC1 17:28 | PROVIDERS: ATTEND Internal Medicine | DX: Z53.9 Procedure and treatment not carried out, unspecified reason (principal) ==

== ENCOUNTER → 2024-09-10 | Outpatient (CLI) | payer OTHER ==
--- NOTE | 2024-09-10 09:34 | US ---
EXAMINATION TYPE: US pelvis complete transvag DATE OF EXAM: 09/10/2024 COMPARISON: 10/24/18 CLINICAL INDICATION: Female, 38 years old with history of D50.8 ABNORMAL BLEEDING; abnormal bleeding since 2019. . 1 TECHNIQUE: Transvaginal (TV) and Transabdominal (TA) . Transabdominal grayscale sonographic images of the pelvis were acquired. Transvaginal sonographic im ages were medically necessary to better assess the following anatomy: ovaries and endo Doppler imaging: Not performed. FINDINGS: Date of LMP: 2 weeks ago EXAM MEASUREMENTS: Uterus: 10.8 x 7.0 x 5.5 cm Endometrial Stripe: 0.5 cm Right Ovary: 3.7 x 2.8 x 2.1 cm Left Ovary: 2.9 x 2.1 x 1.6 cm 1. Uterus: Anteverted wnl 2. Endometrium: wnl 3. Right Ovary: wnl 4. Left Ovary: wnl 5. Bilateral Adnexa: wnl 6. Posterior cul-de-sac: wnl scar noted. Nabothian cyst present versus debris cervical canal. IMPRESSION: 1. No evidence for acute process. 2. Endometrium within normal limits for thickness. 3. Cervical canal debris possibly blood products versus nabothian cyst. [facility], , 09/10/2024 9:32 AM
== END | disposition home or self-care (01) ==
LOC: RADUSWWP 08:53
PROVIDERS: ATTEND Student in an Organized Health Care Education/Training Program
DX: D50.8 Other iron deficiency anemias (principal)
CPT/HCPCS: 76830; 76856

== ENCOUNTER → 2024-09-17 | Outpatient (CLI) | payer OTHER ==
--- NOTE | 2024-09-17 10:12 | CT ---
EXAMINATION TYPE: CT abdomen pelvis wo/w con DATE OF EXAM: 09/17/2024 9:51 AM COMPARISON: Ultrasound 09/10/2024 CLINICAL INDICATION: Female, 38 years old with history of R19.00 INTRA ABD PELVIC SWELLING MASS LUMP; INTRA ABDOMINAL/PELVIC MASS, PT NOT SURE IF RECTAL OR VAGINAL. TECHNIQUE: Axial CT abdomen pelvis wo/w con;Sagittal and coronal reformats were created on a [employer] workstation. Contrast used:100 mL of Isovue 300 with IV Contrast, (none if empty) Oral contrast used: with Oral Contrast (none if empty) CT DLP: 1720.50 mGycm, Automated exposure control for dose reduction was used. FINDINGS: LOWER CHEST: Unremarkable ABDOMEN LIVER: Unremarkable GALLBLADDER AND BILE DUCTS: Unremarkable. PANCREAS: Unremarkable. SPLEEN: Unremarkable. ADRENAL GLANDS: Unremarkable. KIDNEYS AND URETERS: No evidence of hydronephrosis or obstructing renal calculus. The ureters are unr emarkable. 4 mm nonobstructing right renal calculus. No left renal calculi. PELVIS BLADDER: No evidence for wall thickening or mass given limitations of exam. REPRODUCTIVE: Left tubal ligation clip present. Surgical clips near the rectum is present unclear if this is possibly the right tubal ligation clip. Uterus is enlarged with low density probable fluid in the cervical canal and endometrium. ABDOMEN & PELVIS STOMACH AND BOWEL: No evidence of bowel obstruction. The appendix is normal. Oral contrast extends in to the ascending colon. PERITONEUM/RETROPERITONEUM: No evidence of pneumoperitoneum or free fluid. VASCULATURE: No evidence of aortic aneurysm. MUSCULOSKELETAL: No acute osseous abnormalities LYMPH NODES: No gross evidence for lymphadenopathy. SOFT TISSUE/ABDOMINAL WALL: Unremarkable IMPRESSION: 1. No evidence for mass or lymphadenopathy. 2. Bulky uterus with suspected fluid in the endometrium and cervical canal. 3. Nonobstructing right renal calculus. [facility], , 09/17/2024 10:10 AM
== END | disposition home or self-care (01) ==
LOC: RADCTMAIN 07:39
PROVIDERS: ATTEND Obstetrics & Gynecology
DX: N20.0 Calculus of kidney (principal)
CPT/HCPCS: 74178; Q9967